=== PATIENT | male | born 1955 | race Caucasian/White ===

== ENCOUNTER 2020-06-16 | Outpatient (REF) | payer BC, SELFPAY | END 2020-06-16 00:01 | disposition home or self-care (01) | LOC: HO.LNP | PROVIDERS: Visit Provider Urology | DX: Z13.89 Encounter for screening for other disorder (principal) ==

== ENCOUNTER → 2020-06-16 09:11 | Outpatient (BNVA) | payer BC, SELFPAY | PROVIDERS: PCP Internal Medicine; Visit Provider Urology | DX: N30.40 Irradiation cystitis without hematuria (principal); C67.9 Malignant neoplasm of bladder, unspecified; C61 Malignant neoplasm of prostate; C79.51 Secondary malignant neoplasm of bone; Z92.3 Personal history of irradiation | CPT/HCPCS: 52000; 81002 ==

== ENCOUNTER 2020-10-12 09:59 | Outpatient (REF) | payer BC, SELFPAY ==
[2020-10-12 13:55] LABS: Urine Cytology See Pathology rpt
== END 2020-10-12 10:00 | disposition home or self-care (01) ==
LOC: HO.LNP 09:59
PROVIDERS: PCP Internal Medicine; Visit Provider Urology
DX: C61 Malignant neoplasm of prostate (principal)
CPT/HCPCS: 81002; 88112

== ENCOUNTER → 2020-11-24 14:41 | Outpatient (BNVA) | payer BC, SELFPAY | PROVIDERS: PCP Internal Medicine; Visit Provider Urology | DX: N30.40 Irradiation cystitis without hematuria (principal); C61 Malignant neoplasm of prostate; C67.9 Malignant neoplasm of bladder, unspecified | CPT/HCPCS: 81002 ==

== ENCOUNTER 2022-07-19 13:59 | Outpatient (REF) | payer BC, SELFPAY ==
[2022-07-19 17:54] LABS: Urine Cytology See Pathology rpt
== END 2022-07-19 14:00 | disposition home or self-care (01) ==
LOC: HO.LAB 13:59
PROVIDERS: Visit Provider Urology
DX: Z13.89 Encounter for screening for other disorder (principal); C67.9 Malignant neoplasm of bladder, unspecified
CPT/HCPCS: 52000; 88112

== ENCOUNTER 2023-01-18 08:55 | Outpatient (REF) | payer BC, SELFPAY ==
[2023-01-18 16:40] LABS: Urine Cytology See Pathology rpt
== END 2023-01-18 08:56 | disposition home or self-care (01) ==
LOC: HO.LAB 08:55
PROVIDERS: PCP Internal Medicine; Visit Provider Urology
DX: C67.9 Malignant neoplasm of bladder, unspecified (principal); C61 Malignant neoplasm of prostate
CPT/HCPCS: 52000; 88112

== ENCOUNTER 2023-07-18 09:00 | Outpatient (AMB) | payer BC, SELFPAY ==
--- NOTE | 2023-07-18 09:13 | A.OFFVIS_ITS ---
Intake Intake Visit Reasons: 6m cysto Intake Note: Patient is Present for Cystoscopy Urology Med: None Antibiotic Allergy: Cipro, Sulfa, Bactrim, Trimethroprim Blood Thinner: None URO- G Disposable Cystoscope lot: [id number] exp:12/18/2024 Allergies ciprofloxacin [From CIPRO] Allergy (Severe, Verified 01/18/23 09:02) RASH sulfamethoxazole [From BACTRIM] Allergy (Severe, Verified 01/18/23 09:02) GI DISTRESS trimethoprim [From BACTRIM] Allergy (Severe, Verified 01/18/23 09:02) GI DISTRESS Sulfa (Sulfonamide Antibiotics) Allergy (Unknown, Verified 01/18/23 09:02) vomiting OYSTERS Allergy (Severe, Uncoded 01/18/23 09:02) SEVERE GI REACTION HPI HPI Comments History of Present Illness Details Milad is a very pleasant male. He is patient of Dr. Moraes. He is seen for the following conditions - prostate cancer recurrent - Dr Hines [facility] - bladder cancer - radiation cystitis Six month follow-up cystoscopy Maintains areas of radiation cystitis - appears to have some resolution Atypical cells on law cytology. FISH today. 05/28 Recent PSMA scan shows continued s mall lesion within prostate bed. PSA now 4.6. Has been assessed at [facility] for directed cryotherapy. 11/25 repeat PMSA with ill-defined lesion in prostate bed. PSA 2.6. Apparent doubling time approximately [address] Hines will be reassessing for repeat cycle of antiandrogen therapy He will let me know if restarting anti-androgen therapy and needs GnRH. Prior issues with hematuria happened after cardiac bypass surgery with Plavix. Needed valve replacement at that time. Prostate cancer: Initial diagnosis 2008 pT3a disease - prostatectomy, salvage radiation, spot radiation, [facility] January 2020 PSA checked every 4 months 06/27 PMSA - reactive pelvic nodes, PSA 1.7 Prostate cancer was diagnosed 2008. PSA at diagnosis 4.5. Diagnosed by Dr Leonard. 05/17 cores all >50% - pT3a Group 2 2008 RRP - salvage radiation 2011 - rising PSA dt 10mth 2017 started GnRH and antiandrogens - 10/21 XRt to solitary sacral met. The [place] grade is 3+4 pT3a at prostatectomy. TNM Classification of Malignant Tumours (TNM) T1c. The D'Marc (NCCN) risk category is Intermediate Risk (PSA 10-20, Gl 7, T2). Initial therapy included Primary treatment, Radical prostatectomy, Additional treatment, Watchful Waiting, , Additional treatment, radiation therapy 2013 Dr. Arteaga [facility] Additional treatment, XRT to pelvic bone lesion DF 11/21, start xitiga Dr Hines DF , Additional treatment GnRH - 04/03/18, 10/03/18, 09/30/19. Recent labs included a PSA (prostate-specific antigen) November 2015 2.0, Mar 2016 2.4, Jul 2016 3.3, November 2016 4.5, January 2017 5.2, Apr 2017 6.4, 09/23 PSA 8.7, T 447, 01/21 PSA 0.09 T 1, 07/23 PSA < 0.2, 02/21 PSA < 0.2, 09/25 <0.2. Recent imaging included a DEXA scan 01/19 osteopenia 02/19 , a bone scan, with no evidence of metastasis - sacroiliac question 04/22 , an MRI (magnetic resonance imaging) - right sacroiliac 1.5 cm lesion suspicious for metastatic disease 08/[address] [facility] confirm metastatic disease 05/23 MRI - response to radiation 09/24 DEXA osteropenia 05/[address]/MRI at [facility] - NAD. Associated conditions erectile dysfunction Yes hematuria Yes hot flashes No incontinence No osteopenia No pathologic fracture No radiation cystitis Yes rectal urgency Yes Therapeutic plan: OR for laser of vessels. Current symptoms include None . Bladder Cancer: Recurrent superficial low-grade Cysto - bladder radiation changes - question velvet change on left sidewall. Fish performed Bladder cancer was initially diagnosed during evaluation for microscopic hematuria 2008. 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 Recurrence Risk per EORTC Low Risk. Bladder cancer risk factors Organic Solvent exposure No pelvic radiation Yes Prior Cystoscopy November 2015 , Negative Mar 2016 - BBx anterior wall October 2016 - nonhealing area anterior wall February 2017 - healed. Small red area posterior 05/22 , Negative 09/23 - minor red areas consistent with radiation cystitis 01/21 minor red areas 05/23 - looking stable, at anastamosis on right side some minor pouching 09/24 - Red splotches - healed on anterior wall 09/25 NAD, 02/22 Radiation changes, 06/25 left velvet patch - FISH planned Prior Cytology 2013 FISH, Abnormal - not positive 03/2016 Cytology - Atypia suspicious for malignancy 08/22 , Negative for malignancy 11/20 , Negative for malignancy 02/19, Negative for malignancy - well healed 06/23 FISH - negative 09/24 Cytology - , Negative for malignancy, 01/[address] Imaging CT scan with contrast 2011 - negative MRI with contrast, Negative Mar 2016 - CT scan with contrast, 2mm stone LLP, otherwise NAD. Planned treatment surveillance protocol. [facility] Medical History Elevated blood pressure reading Secondary malignant neoplasm of bone Surgical History History of appendectomy History of prostatectomy History of surgery Review of Systems Const Denies chills and Denies fever(s) Card Reports no additional complaints and Denies syncope Resp Denies cough GI Denies abdominal pain and Denies heartburn Reports as per HPI and Denies change in libido Neuro Denies syncope Psych Denies change in libido Endo Denies change in libido Physical Exam Const General: cooperative, healthy appearing, comfortable and no acute distress Orientation/consciousness: patient oriented x3 HEENT Face and sinus: Yes normal facial exam Mouth: moist mucous membranes Neck Neck: Yes normal visual inspection, Yes full ROM and Yes trachea midline Chest Chest palpation & inspection: normal inspection of the chest Resp Effort & Inspection: normal respiratory effort, able to speak in complete sentences and no respiratory distress GI Inspection: Yes normal to inspection Back/Spine/Pelvis Cervical Spine: normal cervical lordosis Thoracic/Lumbar Spine: thoracic and lumbar spine normal to inspection Skin General skin exam: no rashes or lesions noted Neuro General: patient oriented x3, gait normal, tone normal and moves all extremities Extrem General: Yes normal to inspection and Yes capillary refill normal Office Procedures Cystoscopy Consent Discussed risk and benefit or proposed procedure with the patient. Information consent for procedure given to the patient. Discussed technical aspects, risks, benefits and alternatives in full. Addressed all of the patient's questions and concerns regarding the procedure. The patient demonstrated knowledge and understanding. They wish to proceed with this procedure. Preparation The patient was prepped in the usual manner. A parts coordinator was present and in the room. Genitalia was prepped with betadine solution in a sterile manner. Lidocaine Jelly 2% was placed into the urethra and 16Fr flexible Olympus cystoscope was inserted into the meatus after adequate lubrication. Procedure Meatus circumcised Urethra anterior posterior urethra normal Prostatic Urethra absent Bladder examination with retroflexion of cystoscope Bladder Orifices normal shape and position Bladder Capacity medium Trabeculations grade 1 Cellule Formation - Diverticulum Formation - Mucosal Erythema sporadic mucosal changes consistent with radiation cystitis Bladder Tumor - [id number] DISPOSABLE SCOPE URO-G FLEXIBLE SCOPE Procedure code (CPT) selection complete Office Meds lidocaine HCl 2 % mucosal jelly in applicator Performing Provider: Grover Graves MD Performing Location: [facility] Administered by: Michelle Joshi RN on 07/18/23 09:30 Dose Route Admin Location Dispensed Lot Number Expiration Date ND Con[employer] Maintenance Mechanic 10 mL intra-urethral 10 mL nitrofurantoin monohydrate/macrocrystals 100 mg capsule Performing Provider: Grover Graves MD Performing Location: [facility] Administered by: Michelle Joshi RN on 07/18/23 09:30 Dose Route Admin Location Dispensed Lot Number Expiration Date ND Conveyor Maintenance Mechanic 100 mg PO 1 cap naproxen 500 mg tablet Performing Provider: Grover Graves MD Performing Location: [facility] Administered by: Michelle Joshi RN on 07/18/23 09:30 Dose Route Admin Location Dispensed Lot Number Expiration Date NDC Con[employer]or Maintenance Mechanic 500 mg PO 1 tab Results AMB Urinalysis, Automated UA Leukoctes 0 Mylene/uL Last Edit by BECKY Davies on 07/18/23 09:19 UA Nitrite Negative Last Edit by BECKY Davies on 07/18/23 09:19 UA Urobilinogen 0.2 mg/dL Last Edit by BECKY Davies on 07/18/23 09:1 9 UA Protein 15 mg/dL Last Edit by BECKY aDvies on 07/18/23 09:19 UA pH 6.0 Last Edit by BECKY Davies on 07/18/23 09:19 UA Blood 0 Doyle/uL Last Edit by BECKY Davies on 07/18/23 09:19 UA Specific [place] 1.020 Last Edit by FOX DaviseA on 07/18/23 09: 19 UA Ketone Negative Last Edit by FOX DaviesA on 07/18/23 09:19 UA Bilirubin 0 mg/dL Last Edit by Luna Boyd A on 07/18/23 09:19 UA Glucose 0 mg/dL Last Edit by BECKY Davies on 07/18/23 09:19 Results Reviewed Results Reviewed: Laboratory Last Values Urine pH (Auto) 6.0 07/18/23 09:16 Specific [place] (Auto) 1.020 07/18/23 09:16 Urine Protein (Auto) 15 mg/dL 07/18/23 09:16 Glucose (UA)(Auto) 0 mg/dL 07/18/23 09:16 Urine Ketones (Auto) Negative 07/18/23 09:16 Urine Blood (Auto) 0 Doyle/uL 07/18/23 09:16 Urine Nitrite (Auto) Negative 07/18/23 09:16 Urine Bilirubin (Auto) 0 mg/dL 07/18/23 09:16 Urine Urobilinogen (Auto) 0.2 mg/dL 07/18/23 09:16 Leukocyte Esterase (Auto) 0 Mylene/uL 07/18/23 09:16 Assessment & Plan Assessment & Plan (1) Prostate cancer: Comment: Metastatic. Status post radiation to area. Had 2 years hormones and zytiga - therapy stopped January 2020. Managed at [facility] Code(s): C61 - Malignant neoplasm of prostate (2) Radiation cystitis: Comment: Last bleed 2020- treated with tranexamic acid Code(s): N30.40 - Irradiation cystitis without hematuria (3) Bladder cancer: Comment: Last cysto 10/24 Code(s): C67.9 - Malignant neoplasm of bladder, unspecified Plan Six month follow-up cystoscopy Orders: Orders AMB Cystoscopy Today C67.9 - Malignant neoplasm of bladder, unspecified AMB Urinalysis Automated Today C67.9 - Malignant neoplasm of bladder, unspecified, Z13.9 - Encounter for screening, unspecified FISH Bladder Cancer Today C67.9 - Malignant neoplasm of bladder, unspecified Patient Instructions: Imaging studies, laboratory and physical exam results were discussed and reviewed in detail. No major barriers to patient understanding were identified. An opportunity to ask questions regarding the treatment plan was provided. All questions were answered. The patient expressed understanding and agreement with the above treatment plan. The patient is aware they should contact our office by phone for worsening of their current condition or the appearance of new urologic symptoms. Compliance is encouraged with any medications and followup testing that is ordered. It is a privilege to participate in the urologic care of your patient. If you have any questions or concerns regarding treatment for the above conditions, or other urologic issues, please do not hesitate to contact me. The office telephone contact is [phone]. This note is constructed using voice recognition software. While every effort has been made to ensure accuracy custodial worker errors may have been included. Yours sincerely, Dr Grover Graves MD, [facility] - Urology Providers of Expert, Compassionate Care for the Genitourinary System Coding Level of Care Code Est Pt Level 4 (35961) Diagnoses Prostate cancer C61 Radiation cystitis N30.40 Bladder cancer C67.9 CPT Codes Cystoscopy - CPT: 95721-[id number] ([id number])
== END 2023-07-18 09:54 | disposition home or self-care (01) ==
PROVIDERS: PCP Internal Medicine; Visit Provider Urology
DX: C61 Malignant neoplasm of prostate (principal); C67.9 Malignant neoplasm of bladder, unspecified; N30.40 Irradiation cystitis without hematuria; Z13.9 Encounter for screening, unspecified
CPT/HCPCS: 52000

== ENCOUNTER 2023-07-18 09:00 | Outpatient (REF) | payer BC, SELFPAY | END 2023-07-18 09:01 | disposition home or self-care (01) | LOC: HO.LAB 09:00 | PROVIDERS: PCP Internal Medicine; Visit Provider Urology | DX: C61 Malignant neoplasm of prostate (principal); C67.9 Malignant neoplasm of bladder, unspecified; N30.40 Irradiation cystitis without hematuria | CPT/HCPCS: 52000; 81003; 88121 ==

== ENCOUNTER 2024-01-16 09:01 | Outpatient (AMB) | payer BC, SELFPAY ==
--- NOTE | 2024-01-16 09:02 | A.OFFVIS_ITS ---
Intake Visit Reasons: cysto Intake Note: Patient is Present for Cystoscopy Urology Med: Pentoxifylline Antibiotic Allergy: Sulfa, Trimethoprim, Cipro Blood Thinner: None URO- G Disposable Cystoscope lot:[id number] exp:09/06/2026 Allergies ciprofloxacin [From CIPRO] Allergy (Severe, Verified 01/16/24 09:07) RASH sulfamethoxazole [From BACTRIM] Allergy (Severe, Verified 01/16/24 09:07) GI DISTRESS trimethoprim [From BACTRIM] Allergy (Severe, Verified 01/16/24 09:07) GI DISTRESS Sulfa (Sulfonamide Antibiotics) Allergy (Unknown, Verified 01/16/24 09:07) vomiting OYSTERS Allergy (Severe, Uncoded 01/16/24 09:07) SEVERE GI REACTION HPI Comments Details: Milad is a very pleasant male. He is patient of Dr. Moraes. He is seen for the following conditions - prostate cancer recurrent - Dr Hines [facility] - bladder cancer - radiation cystitis Six month follow-up cystoscopy Maintains areas of radiation cystitis - appears to have some resolution Atypical cells on law cytology. Cytology today 12/27 surveillance cystoscopy - FISH negative [facility] decided not to pursue targeted cryotherapy on prostate bed. For now treated with abiraterone 05/28 Recent PSMA scan shows continued small lesion within prostate bed. PSA now 4.6. Has been assessed at [facility] for directed cryotherapy. 11/25 repeat PMSA with ill-defined lesion in prostate bed. PSA 2.6. Apparent doubling time approximately [address] Hines will be reassessing for repeat cycle of antiandrogen therapy He will let me know if restarting anti-androgen therapy and needs GnRH. Prior issues with hematuria happened after cardiac bypass surgery with Plavix. Needed valve replacement at that time. Prostate cancer: Initial diagnosis 2008 pT3a disease - prostatectomy, salvage radiation, spot radiation, anti androgen therapy Follows a [facility] Currently therapy ceased January 2020 PSA checked every 4 months 06/27 PMSA - reactive pelvic nodes, PSA 1.7 Prostate cancer was diagnosed 2008. PSA at diagnosis 4.5. Diagnosed by Dr Leonard. 05/17 cores all >50% - pT3a Group 2 2008 RRP - salvage radiation 2011 - rising PSA dt 10mth 2017 started GnRH and antiandrogens - 10/21 XRt to solitary sacral met. The [place] grade is 3+4 pT3a at prostatectomy. TNM Classification of Malignant Tumours (TNM) T1c. The D'Marc (NCCN) risk category is Intermediate Risk (PSA 10-20, Gl 7, T2). Initial therapy included Primary treatment, Radical prostatectomy, Additional treatment, Watchful Waiting, , Additional treatment, radiation therapy 2013 Dr. Arteaga [facility] Additional treatment, XRT to pelvic bone lesion DF 11/21, start xitiga Dr Hines DF , Additional treatment GnRH - 04/03/18, 10/03/18, 09/30/19. Recent labs included a PSA (prostate-specific antigen) November 2015 2.0, Mar 2016 2.4, Jul 2016 3.3, November 2016 4.5, January 2017 5.2, Apr 2017 6.4, 09/23 PSA 8.7, T 447, 01/21 PSA 0.09 T 1, 07/23 PSA < 0.2, 02/21 PSA < 0.2, 09/25 <0.2. Recent imaging included a DEXA scan 01/19 osteopenia 02/19 , a bone scan, with no evidence of metastasis - sacroiliac question 04/22 , an MRI (magnetic resonance imaging) - right sacroiliac 1.5 cm lesion suspicious for metastatic disease 08/23 bone biosy at [facility] confirm metastatic disease 05/23 MRI - response to radiation 09/24 DEXA osteropenia 05/[address]/MRI at [facility] - NAD. Associated conditions erectile dysfunction Yes hematuria Yes hot flashes No incontinence No osteopenia No pathologic fracture No radiation cystitis Yes rectal urgency Yes Therapeutic plan: OR for laser of vessels. Current symptoms include None . Bladder Cancer: Recurrent superficial low-grade Cysto - bladder radiation changes - question velvet change on left sidewall. Fish performed Bladder cancer was initially diagnosed during evaluation for microscopic hematuria 2008. Bladder intervention(s) performed TURBT, Ta noninvasive papillary ca rcinoma, Low Grade, BCG - May 2016 fulgeration + [facility]. Recurrence Risk per EORTC Low Risk. Bladder cancer risk factors Organic Solvent exposure No pelvic radiation Yes Prior Cystoscopy November 2015 , Negative Mar 2016 - BBx anterior wall October 2016 - nonhealing area anterior wall February 2017 - healed. Small red area posterior 05/22 , Negative 09/23 - minor red areas consistent with radiation cystitis 01/21 minor red areas 05/23 - looking stable, at anastamosis on right side some minor pouching 09/24 - Red splotches - healed on anterior wall 09/25 NAD, 02/22 Radiation changes, 06/25 left velvet patch - FISH planned Prior Cytology 2013 FISH, Abnormal - not positive 03/2016 Cytology - Atypia suspicious for malignancy 08/22 , Negative for malignancy 11/20 , Negative for malignancy 02/19, Negative for malignancy - well healed 06/23 FISH - negative 09/24 Cytology - , Negative for malignancy, 01/26 Atypical, 06/28 fish negative Prior Imaging CT scan with contrast 2011 - negative MRI with contrast, Negative Mar 2016 - CT scan with contrast, 2mm stone LLP, otherwise NAD. Planned treatment surveillance protocol. [facility] Medical History Secondary malignant neoplasm of bone Elevated blood pressure reading Surgical History History of surgery History of appendectomy History of prostatectomy Review of Systems Const Denies chills and Denies fever(s) Card Reports no additional complaints and Denies syncope Resp Denies cough GI Denies abdominal pain and Denies heartburn Reports as per HPI and Denies change in libido Neuro Denies syncope Psych Denies change in libido Endo Denies change in libido Physical Exam Const General: cooperative, healthy appearing, comfortable and no acute distress Orientation/consciousness: patient oriented x3 HEENT Face and sinus: Yes normal facial exam Mouth: moist mucous membranes Neck Neck: Yes normal visual inspection, Yes full ROM and Yes trachea midline Chest Chest palpation & inspection: normal inspection of the chest Resp Effort & Inspection: normal respiratory effort, able to speak in complete sentences and no respiratory distress GI Inspection: Yes normal to inspection Back/Spine/Pelvis Cervical Spine: normal cervical lordosis Thoracic/Lumbar Spine: thoracic and lumbar spine normal to inspection Skin General skin exam: no rashes or lesions noted Neuro General: patient oriented x3, gait normal, tone normal and moves all extremities Extrem General: Yes normal to inspection and Yes capillary refill normal Office Procedures Cystoscopy Consent Discussed risk and benefit or proposed procedure with the patient. Information consent for procedure given to the patient. Discussed technical aspects, risks, benefits and alternatives in full. Addressed all of the patient's questions and concerns regarding the procedure. The patient demonstrated knowledge and understanding. They wish to proceed with this procedure. Preparation The patient was prepped in the usual manner. A manufacturing maintenance manager was present and in the room. Genitalia was prepped with betadine solution in a sterile manner. Lidocaine Jelly 2% was placed into the urethra and 16Fr flexible Olympus cystoscope was inserted into the meatus after adequate lubrication. Procedure Cystoscopy performed using a disposable Urovue digital 16 Azeri cystoscope. Meatus circumcised Urethra anterior and posterior urethra normal Prostatic Urethra prostate absent Bladder examination with retroflexion of cystoscope Bladder Orifices normal shape and position Bladder Capacity normal Trabeculations grade 1 Cellule Formation - Diverticulum Formation - Mucosal Erythema mucosal erythema with damage 2nd consistent with radiation cystitis Bladder Tumor - [id number] DISPOSABLE SCOPE URO-G FLEXIBLE SCOPE Procedure code (CPT) selection complete Office Meds lidocaine HCl 2 % mucosal jelly in applicator Performing Provider: Grover Graves MD Performing Location[place] [facility] Administered by: Rasheed Watt LPN on 01/16/24 09:27 Dose Route Admin Location Dispensed Lot Number Expiration Date [facility] Fishing Accessories Maker 10 mL intra-urethral 10 mL nitrofurantoin monohydrate/macrocrystals 100 mg capsule Performing Provider: Grover Graves MD Performing Location: [facility] Administered by: Rasheed Watt LPN on 01/16/24 09:27 Dose Route Admin Location Dispensed Lot Number Expiration Date ND Fishing Accessories Maker 100 mg PO 1 cap naproxen 500 mg tablet Performing Provider: Grover Graves MD Performing Location: [facility] Documented (not given) by: Rasheed Watt LPN on 01/16/24 09:27 Reason Not Given: Patient Refused Results AMB Urinalysis, Automated UA Leukoctes 0 Mylene/uL Last Edit by BECKY Davies on 01/16/24 09:18 UA Nitrite Negative Last Edit by BECKY Davies on 01/16/24 09:18 UA Urobilinogen 0.2 mg/dL Last Edit by BECKY Davies on 01/16/24 09:1 8 UA Protein 15 mg/dL Last Edit by BECKY Davies on 01/16/24 09:18 UA pH 5.0 Last Edit by BECKY Davies on 01/16/24 09:18 UA Blood 0 Doyle/uL Last Edit by Luna Boyd RMA on 01/16/24 09:18 UA Specific [place] 1.025 Last Edit by Luna Boyd RMA on 01/16/24 09: 18 UA Ketone Negative Last Edit by Luna Boyd RMA on 01/16/24 09:18 UA Bilirubin 0 mg/dL Last Edit by Luna Boyd RMA on 01/16/24 09:18 UA Glucose 0 mg/dL Last Edit by Luna Boyd A on 01/16/24 09:18 Results Reviewed Results Reviewed: Laboratory Last Values Urine pH (Auto) 5.0 01/16/24 09:03 Specific [place] (Auto) 1.025 01/16/24 09:03 Urine Protein (Auto) 15 mg/dL 01/16/24 09:03 Glucose (UA)(Auto) 0 mg/dL 01/16/24 09:03 Urine Ketones (Auto) Negative 01/16/24 09:03 Urine Blood (Auto) 0 Doyle/uL 01/16/24 09:03 Urine Nitrite (Auto) Negative 01/16/24 09:03 Urine Bilirubin (Auto) 0 mg/dL 01/16/24 09:03 Urine Urobilinogen (Auto) 0.2 mg/dL 01/16/24 09:03 Leukocyte Esterase (Auto) 0 Mylene/uL 01/16/24 09:03 Assessment & Plan Assessment & Plan (1) Prostate cancer: Comment: Metastatic. Status post radiation to area. Had 2 years hormones and zytiga - therapy stopped January 2020. Managed at [facility] Code(s): C61 - Malignant neoplasm of prostate Category: Medical (2) Radiation cystitis: Comment: Last bleed 2020- treated with tranexamic acid Code(s): N30.40 - Irradiation cystitis without hematuria Category: Medical Plan Six-month follow-up cysto Orders: Orders AMB Urinalysis Automated Today Z13.9 - Encounter for screening, unspecified AMB Cystoscopy Today C67.9 - Malignant neoplasm of bladder, unspecified Urine Cytology Today C67.9 - Malignant neoplasm of bladder, unspecified Patient Instructions: Imaging studies, laboratory and physical exam results were discussed and revie wed in detail. No major barriers to patient understanding were identified. An opportunity to ask questions regarding the treatment plan was provided. All questions were answered. The patient expressed understanding and agreement with the above treatment plan. The patient is aware they should contact our office by phone for worsening of their current condition or the appearance of new urologic symptoms. Compliance is encouraged with any medications and followup testing that is ordered. It is a privilege to participate in the urologic care of your patient. If you have any questions or concerns regarding treatment for the above conditions, or other urologic issues, please do not hesitate to contact me. The office telephone contact is [phone]. This note is constructed using voice recognition software. While every effort has been made to ensure accuracy water server errors may have been included. Yours sincerely, Dr Grover Graves MD, [facility] - Urology Providers of Expert, Compassionate Care for the Genitourinary System Coding Level of Care Code Est Pt Level 3 (47916) Diagnoses Prostate cancer C61 Radiation cystitis N30.40 CPT Codes Cystoscopy - CPT: 58918-[id number] ([id number])
== END 2024-01-16 09:56 | disposition home or self-care (01) ==
PROVIDERS: PCP Internal Medicine; Visit Provider Urology
DX: N30.40 Irradiation cystitis without hematuria (principal); C61 Malignant neoplasm of prostate; C67.9 Malignant neoplasm of bladder, unspecified; Z13.9 Encounter for screening, unspecified
CPT/HCPCS: 52000; 99213

== ENCOUNTER 2024-01-16 09:01 | Outpatient (REF) | payer BC, SELFPAY ==
[2024-01-16 16:50] LABS: Urine Cytology See Pathology rpt
== END 2024-01-16 09:02 | disposition home or self-care (01) ==
LOC: HO.LAB 09:01
PROVIDERS: PCP Internal Medicine; Visit Provider Urology
DX: C61 Malignant neoplasm of prostate (principal); C67.9 Malignant neoplasm of bladder, unspecified; N30.40 Irradiation cystitis without hematuria
CPT/HCPCS: 52000; 81003; 88112

== ENCOUNTER 2024-07-17 08:53 | Outpatient (AMB) | payer MEDICARE, SELFPAY ==
--- NOTE | 2024-07-17 08:59 | MHC.OFFVIS ---
Intake Visit Reasons: cysto Intake Note: Patient is present for Cystoscopy Urology Medication:NONE Antibiotic Allergy:CIPROFLOXACIN,SULFAMETHOXAZOLE,SULFA Blood Thinner: Lot:[id number] Exp:06/09/27 Supervisor Lead Burning Required: No Allergies ciprofloxacin [From CIPRO] Allergy (Severe, Verified 07/17/24 09:01) RASH sulfamethoxazole [From BACTRIM] Allergy (Severe, Verified 07/17/24 09:01) GI DISTRESS trimethoprim [From BACTRIM] Allergy (Severe, Verified 07/17/24 09:01) GI DISTRESS Sulfa (Sulfonamide Antibiotics) Allergy (Unknown, Verified 07/17/24 09:01) vomiting OYSTERS Allergy (Severe, Uncoded 07/17/24 09:01) SEVERE GI REACTION HPI Comments Details: Milad is a very pleasant male. He is patient of Dr. Moraes. He is seen for the following conditions - prostate cancer recurrent - Dr Hines [facility] - bladder cancer - radiation cystitis Six month follow-up cystoscopy Did have areas of radiation cystitis anterior Had some bleeding that had been associated with amlodipine Continues with abiraterone and well controlled PSA 12/27 surveillance cystoscopy - FISH negative [facility] decided not to pursue targeted cryotherapy on prostate bed. For now treated with abiraterone 05/28 Recent PSMA scan shows continued small lesion within prostate bed. PSA now 4.6. Has been assessed at [facility] for directed cryotherapy. 11/25 repeat PMSA with ill-defined lesion in prostate bed. PSA 2.6. Apparent doubling time approximately [address] Hines will be reassessing for repeat cycle of antiandrogen therapy He will let me know if restarting anti-androgen therapy and needs GnRH. Prior issues with hematuria happened after cardiac bypass surgery with Plavix. Needed valve replacement at that time. Prostate cancer: Initial diagnosis 2008 pT3a disease - prostatectomy, salvage radiation, spot radiation, anti androgen therapy Follows a [facility] Currently therapy ceased January 2020 PSA checked every 4 months 06/27 PMSA - reactive pelvic nodes, PSA 1.7 Prostate cancer was diagnosed 2008. PSA at diagnosis 4.5. Diagnosed by Dr Leonard. 05/17 cores all >50% - pT3a Group 2 2008 RRP - salvage radiation 2011 - rising PSA dt 10mth 2017 started GnRH and antiandrogens - 10/21 XRt to solitary sacral met. The [place] grade is 3+4 pT3a at prostatectomy. TNM Classification of Malignant Tumours (TNM) T1c. The D'Marc (NCCN) risk category is Intermediate Risk (PSA 10-20, Gl 7, T2). Initial therapy included Primary treatment, Radical prostatectomy, Additional treatment, Watchful Waiting, , Additional treatment, radiation therapy 2013 Dr. Arteaga [facility] Additional treatment, XRT to pelvic bone lesion DF 11/21, start xitiga Dr Hines DF , Additional treatment GnRH - 04/03/18, 10/03/18, 09/30/19. Recent labs included a PSA (prostate-specific antigen) November 2015 2.0, Mar 2016 2.4, Jul 2016 3.3, November 2016 4.5, January 2017 5.2, Apr 2017 6.4, 09/23 PSA 8.7, T 447, 01/21 PSA 0.09 T 1, 07/23 PSA < 0.2, 02/21 PSA < 0.2, 09/25 <0.2. Recent imaging included a DEXA scan 01/19 osteopenia 02/19 , a bone scan, with no evidence of metastasis - sacroiliac question 04/22 , an MRI (magnetic resonance imaging) - right sacroiliac 1.5 cm lesion suspicious for metastatic disease 08/23 bone biosy at [facility] confirm metastatic disease 05/23 MRI - response to radiation 09/24 DEXA osteropenia 05/[address]/MRI at [facility] - NAD. Associated conditions erectile dysfunction Yes hematuria Yes hot flashes No incontinence No osteopenia No pathologic fracture No radiation cystitis Yes rectal urgency Yes Therapeutic plan: OR for laser of vessels. Current symptoms include None . Bladder Cancer: Recurrent superficial low-grade Cysto - bladder radiation changes - question velvet change on left sidewall. Fish performed Bladder cancer was initially diagnosed during evaluation for microscopic hematuria 2008. 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 Recurrence Risk per EORTC Low Risk. Bladder cancer risk factors Organic Solvent exposure No pelvic radiation Yes Prior Cystoscopy November 2015 , Negative Mar 2016 - BBx anterior wall October 2016 - nonhealing area anterior wall February 2017 - healed. Small red area posterior 05/22 , Negative 09/23 - minor red areas consistent with radiation cystitis 01/21 minor red areas 05/23 - looking stable, at anastamosis on right side some minor pouching 09/24 - Red splotches - healed on anterior wall 09/25 NAD, 02/22 Radiation changes, 06/25 left velvet patch - FISH planned Prior Cytology 2013 FISH, Abnormal - not positive 03/2016 Cytology - Atypia suspicious for malignancy 08/22 , Negative for malignancy 11/20 , Negative for malignancy 02/19, Negative for malignancy - well healed 06/23 FISH - negative 09/24 Cytology - , Negative for malignancy, 01/26 Atypical, 06/28 fish negative Prior Imaging CT scan with contrast 2011 - negative MRI with contrast, Negative Mar 2016 - CT scan with contrast, 2mm stone LLP, otherwise NAD. Planned treatment surveillance protocol. [facility] Medical History Secondary malignant neoplasm of bone Elevated blood pressure reading Surgical History History of surgery History of appendectomy History of prostatectomy Review of Systems Const Denies chills and Denies fever(s) Card Reports no additional complaints and Denies syncope Resp Denies cough GI Denies abdominal pain and Denies heartburn Reports as per HPI and Denies change in libido Neuro Denies syncope Psych Denies change in libido Endo Denies change in libido Physical Exam Const General: cooperative, healthy appearing, comfortable and no acute distress Orientation/consciousness: patient oriented x3 HEENT Face and sinus: Yes normal facial exam Mouth: moist mucous membranes Neck Neck: Yes normal visual inspection, Yes full ROM and Yes trachea midline Chest Chest palpation & inspection: normal inspection of the chest Resp Effort & Inspection: normal respiratory effort, able to speak in complete sentences and no respiratory distress GI Inspection: Yes normal to inspection Back/Spine/Pelvis Cervical Spine: normal cervical lordosis Thoracic/Lumbar Spine: thoracic and lumbar spine normal to inspection Skin General skin exam: no rashes or lesions noted Neuro General: patient oriented x3, gait normal, tone normal and moves all extremities Extrem General: Yes normal to inspection and Yes capillary refill normal Office Procedures Cystoscopy Consent Discussed risk and benefit or proposed procedure with the patient. Information consent for procedure given to the patient. Discussed technical aspects, risks, benefits and alternatives in full. Addressed all of the patient's questions and concerns regarding the procedure. The patient demonstrated knowledge and understanding. They wish to proceed with this procedure. Preparation The patient was prepped in the usual manner. A steep tender was present and in the room. Genitalia was prepped with betadine solution in a sterile manner. Lidocaine Jelly 2% was placed into the urethra and 16Fr flexible Olympus cystoscope was inserted into the meatus after adequate lubrication. Procedure Cystoscopy performed using a disposable Urovue digital 16 Syri[place] cystoscope. Meatus circumcised Urethra anterior and posterior urethra normal Prostatic Urethra prostate absent Bladder examination with retroflexion of cystoscope Bladder Orifices normal shape and position Bladder Capacity median Trabeculations grade 1 Cellule Formation - Diverticulum Formation - Mucosal Erythema radiation cystitis particularly lower 3rd of bladder Bladder Tumor - [id number] DISPOSABLE SCOPE URO-G FLEXIBLE SCOPE Procedure code (CPT) selection complete Office Meds lidocaine HCl 2 % mucosal jelly in applicator Performing Provider: Grover Graves MD Performing Location[facility] Administered by: Grover Graves MD on 07/17/24 13:38 Dose Route Admin Location Dispensed Lot Number Expiration Date [facility] Security Installation Sales Technician 10 mL intra-urethral 10 mL Results AMB Urinalysis, Automated UA Leukoctes 0 Mylene/uL Last Edit by CINTHIA Spear on 07/17/24 09:10 UA Nitrite Negative Last Edit by CINTHIA Spear on 07/17/24 09:10 UA Urobilinogen 0.2 mg/dL Last Edit by CINTHIA Spear on 07/17/24 09:10 UA Protein 15 mg/dL Last Edit by CINTHIA Spear on 07/17/24 09:10 UA pH 5.5 Last Edit by CINTHIA Spear on 07/17/24 09:10 UA Blood 0 Doyle/uL Last Edit by CINTHIA Spear on 07/17/24 09:10 UA Specific [place] 1.030 Last Edit by CINTHIA Spear on 07/17/24 09:10 UA Ketone Negative Last Edit by CINTHIA Spear on 07/17/24 09:10 UA Bilirubin 0 mg/dL Last Edit by CINTHIA Spear on 07/17/24 09:10 UA Glucose 0 mg/dL Last Edit by CINTHIA Spear on 07/17/24 09:10 Results Reviewed Results Reviewed: Laboratory Last Values Urine pH (Auto) 5.5 07/17/24 09:10 Specific [place] (Auto) 1.030 07/17/24 09:10 Urine Protein (Auto) 15 mg/dL 07/17/24 09:10 Glucose (UA)(Auto) 0 mg/dL 07/17/24 09:10 Urine Ketones (Auto) Negative 07/17/24 09:10 Urine Blood (Auto) 0 Doyle/uL 07/17/24 09:10 Urine Nitrite (Auto) Negative 07/17/24 09:10 Urine Bilirubin (Auto) 0 mg/dL 07/17/24 09:10 Urine Urobilinogen (Auto) 0.2 mg/dL 07/17/24 09:10 Leukocyte Esterase (Auto) 0 Mylene/uL 07/17/24 09:10 Assessment & Plan Assessment & Plan (1) Bladder cancer: Comment: Last cysto 10/24 Code(s): C67.9 - Malignant neoplasm of bladder, unspecified Category: Medical (2) Prostate cancer: Comment: Metastatic. Status post radiation to area. Had 2 years hormones and zytiga - therapy stopped January 2020. Managed at [facility] Code(s): C61 - Malignant neoplasm of prostate Category: Medical (3) Radiation cystitis: Comment: Last bleed 2020- treated with tranexamic acid Code(s): N30.40 - Irradiation cystitis without hematuria Category: Medical Plan Discussed use of tranexamic acid Six-month follow-up check cysto Orders: Orders AMB Urinalysis Automated Today Z13.9 - Encounter for screening, unspecified AMB Cystoscopy Today N30.40 - Irradiation cystitis without hematuria Medications: New lidocaine HCl 2% 10 mL intra-urethral ONCE 10 mL 0RF N30.40 - Irradiation cystitis without hematuria Patient Instructions: Imaging studies, laboratory and physical exam results were discussed and reviewed in detail. No major barriers to patient understanding were identified. An opportunity to ask questions regarding the treatment plan was provided. All questions were answered. The patient expressed understanding and agreement with the above treatment plan. The patient is aware they should contact our office by phone for worsening of their current condition or the appearance of new urologic symptoms. Compliance is encouraged with any medications and followup testing that is ordered. It is a privilege to participate in the urologic care of your patient. If you have any questions or concerns regarding treatment for the above conditions, or other urologic issues, please do not hesitate to contact me. The office telephone contact is [phone]. This note is constructed using voice recognition software. While every effort has been made to ensure accuracy pie bottomer errors may have been included. Yours sincerely, Dr Grover Graves MD, [facility] - Urology Providers of Expert, Compassionate Care for the Genitourinary System Coding Level of Care Code Est Pt Level 3 (40811) Diagnoses Bladder cancer C67.9 Prostate cancer C61 Radiation cystitis N30.40 CPT Codes Cystoscopy - CPT: 94936-[id number] ([id number])
== END 2024-07-17 09:58 | disposition home or self-care (01) ==
PROVIDERS: PCP Internal Medicine; Visit Provider Urology
DX: C67.9 Malignant neoplasm of bladder, unspecified (principal); C61 Malignant neoplasm of prostate; N30.40 Irradiation cystitis without hematuria; Z13.9 Encounter for screening, unspecified
CPT/HCPCS: 52000; 99213

== ENCOUNTER → 2024-07-17 08:53 | Outpatient (BNVA) | payer BC, SELFPAY | PROVIDERS: PCP Internal Medicine; Visit Provider Urology | DX: C61 Malignant neoplasm of prostate (principal); C67.9 Malignant neoplasm of bladder, unspecified; N30.40 Irradiation cystitis without hematuria | CPT/HCPCS: 52000; 81003; 99212 ==

== ENCOUNTER 2025-01-20 08:55 | Outpatient (AMB) | payer MEDICARE, SELFPAY ==
--- NOTE | 2025-01-20 09:07 | A.OFFVIS_ITS ---
Intake Visit Reasons: 6m cysto Intake Note: Patient is present for 6M/CYSTO Urology Medication:NONE Antibiotic Allergy:CIPROFLOXACIN,SULFA,BACTRIM Blood Thinner:NONE Associate Brand Manager Required: No Allergies ciprofloxacin [From CIPRO] Allergy (Severe, Verified 01/20/25 09:09) RASH sulfamethoxazole [From BACTRIM] Allergy (Severe, Verified 01/20/25 09:09) GI DISTRESS trimethoprim [From BACTRIM] Allergy (Severe, Verified 01/20/25 09:09) GI DISTRESS Sulfa (Sulfonamide Antibiotics) Allergy (Unknown, Verified 01/20/25 09:09) vomiting OYSTERS Allergy (Severe, Uncoded 01/20/25 09:09) SEVERE GI REACTION HPI Comments Details: Milad is a very pleasant male. He is patient of Dr. Moraes. He is seen for the following conditions - prostate cancer recurrent - Dr Hines [facility] - bladder cancer - radiation cystitis Six month follow-up cystoscopy Had some bleeding that had been associated with amlodipine Continues with abiraterone and well controlled PSA 01/28 Check cysto - stable Recent PSMA PET scan at [facility] showed decreased avidity of prostate bed. Has been taken off abiraterone. Did have single dose GnRH whilst on antiandrogen. 12/27 surveillance cystoscopy - FISH negative [facility] decided not to pursue targeted cryotherapy on prostate bed. For now treated with abiraterone 05/28 Recent PSMA scan shows continued small lesion within prostate bed. PSA now 4.6. Has been assessed at [facility] for directed cryotherapy. 11/25 repeat PMSA with ill-defined lesion in prostate bed. PSA 2.6. Apparent doubling time approximately [address] Hines will be reassessing for repeat cycle of antiandrogen therapy He will let me know if restarting anti-androgen therapy and needs GnRH. Prior issues with hematuria happened after cardiac bypass surgery with Plavix. Needed valve replacement at that time. Prostate cancer: Initial diagnosis 2008 pT3a disease - prostatectomy, salvage radiation, spot radiation, anti androgen therapy Follows a [facility] Currently therapy ceased January 2020 PSA checked every 4 months 06/27 PMSA - reactive pelvic nodes, PSA 1.7 Prostate cancer was diagnosed 2008. PSA at diagnosis 4.5. Diagnosed by Dr Leonard. 05/17 cores all >50% - pT3a Group 2 2009 RRP - salvage radiation 2011 - rising PSA dt 10mth 2017 started GnRH and antiandrogens - 10/21 XRt to solitary sacral met. The [place] grade is 3+4 pT3a at prostatectomy. TNM Classification of Malignant Tumours (TNM) T1c. The D'Marc (NCCN) risk category is Intermediate Risk (PSA 10-20, Gl 7, T2). Initial therapy included Primary treatment, Radical prostatectomy, Additional treatment, Watchful Waiting, , Additional treatment, radiation therapy [address] [facility] Additional treatment, XRT to pelvic bone lesion DF 11/21, start xitiga Dr Hines DF , Additional treatment GnRH - 04/03/18, 10/03/18, 09/30/19. Recent labs included a PSA (prostate-specific antigen) November 2015 2.0, Mar 2016 2.4, Jul 2016 3.3, November 2016 4.5, January 2017 5.2, Apr 2017 6.4, 09/23 PSA 8.7, T 447, 01/21 PSA 0.09 T 1, 07/23 PSA < 0.2, 02/21 PSA < 0.2, 09/25 <0.2. Recent imaging included a DEXA scan 01/19 osteopenia 02/19 , a bone scan, with no evidence of metastasis - sacroiliac question 04/22 , an MRI (magnetic resonance imaging) - right sacroiliac 1.5 cm lesion suspicious for metastatic disease 08/[address] [facility] confirm metastatic disease 05/23 MRI - response to radiation 09/24 DEXA osteropenia 05/[address]/MRI at [facility] - NAD. Associated conditions erectile dysfunction Yes hematuria Yes hot flashes No incontinence No osteopenia No pathologic fracture No radiation cystitis Yes rectal urgency Yes Therapeutic plan: OR for laser of vessels. Current symptoms include None . Bladder Cancer: Recurrent superficial low-grade Cysto - bladder radiation changes - question velvet change on left sidewall. Fish performed Bladder cancer was initially diagnosed during evaluation for microscopic hematuria 2008. 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 Recurrence Risk per EORTC Low Risk. Bladder cancer risk factors Organic Solvent exposure No pelvic radiation Yes Prior Cystoscopy November 2015 , Negative Mar 2016 - BBx anterior wall October 2016 - nonhealing area anterior wall February 2017 - healed. Small red area posterior 05/22 , Negative 09/23 - minor red areas consistent with radiation cystitis 01/21 minor red areas 05/23 - looking stable, at anastamosis on right side some minor pouching 09/24 - Red splotches - healed on anterior wall 09/25 NAD, 02/22 Radiation changes, 06/25 left velvet patch - FISH planned Prior Cytology 2013 FISH, Abnormal - not positive 03/2016 Cytology - Atypia suspicious for malignancy 08/22 , Negative for malignancy 11/20 , Negative for malignancy 02/19, Negative for malignancy - well healed 06/23 FISH - negative 09/24 Cytology - , Negative for malignancy, 01/26 Atypical, 06/28 fish negative Prior Imaging CT scan with contrast 2011 - negative MRI with contrast, Negative Mar 2016 - CT scan with contrast, 2mm stone LLP, otherwise NAD. Planned treatment surveillance protocol. [facility] Medical History Secondary malignant neoplasm of bone Elevated blood pressure reading Surgical History History of surgery History of appendectomy History of prostatectomy Review of Systems Const Denies chills and Denies fever(s) Card Reports no additional complaints and Denies syncope Resp Denies cough GI Denies abdominal pain and Denies heartburn Reports as per HPI and Denies change in libido Neuro Denies syncope Psych Denies change in libido Endo Denies change in libido Physical Exam Const General: cooperative, healthy appearing, comfortable and no acute distress Orientation/consciousness: patient oriented x3 HEENT Face and sinus: Yes normal facial exam Mouth: moist mucous membranes Neck Neck: Yes normal visual inspection, Yes full ROM and Yes trachea midline Chest Chest palpation & inspection: normal inspection of the chest Resp Effort & Inspection: normal respiratory effort, able to speak in complete sentences and no respiratory distress GI Inspection: Yes normal to inspection Back/Spine/Pelvis Cervical Spine: normal cervical lordosis Thoracic/Lumbar Spine: thoracic and lumbar spine normal to inspection Skin General skin exam: no rashes or lesions noted Neuro General: patient oriented x3, gait normal, tone normal and moves all extremities Extrem General: Yes normal to inspection and Yes capillary refill normal Office Procedures Cystoscopy Consent Discussed risk and benefit or proposed procedure with the patient. Information consent for procedure given to the patient. Discussed technical aspects, risks, benefits and alternatives in full. Addressed all of the patient's questions and concerns regarding the procedure. The patient demonstrated knowledge and understanding. They wish to proceed with this procedure. Preparation The patient was prepped in the usual manner. A licensed physical therapist was present and in the room. Genitalia was prepped with betadine solution in a sterile manner. Lidocaine Jelly 2% was placed into the urethra and 16Fr flexible Olympus cystoscope was inserted into the meatus after adequate lubrication. Procedure Cystoscopy performed using a disposable Urovue digital 16 [place] cystoscope. Meatus circumcised Urethra anterior and posterior urethra normal Prostatic Urethra absent Bladder examination with retroflexion of cystoscope Bladder Orifices normal shape and position Bladder Capacity Normal Trabeculations grade 1 Cellule Formation None Diverticulum Formation None Mucosal Erythema radiation damage around lower 3rd Bladder Tumor None [id number] DISPOSABLE SCOPE URO-G FLEXIBLE SCOPE Procedure code (CPT) selection complete Office Meds lidocaine HCl 2 % mucosal jelly in applicator Performing Provider: Grover Graves MD Performing Location: [facility] Administered by: Rasheed Watt LPN on 01/20/25 09:24 Dose Route Admin Location Dispensed Lot Number Expiration Date ND Freezing Machine Operator 10 mL intra-urethral 10 mL nitrofurantoin monohydrate/macrocrystals 100 mg capsule Performing Provider: Grover Graves MD Performing Location: [facility] Administered by: Rasheed Watt LPN on 01/20/25 09:24 Dose Route Admin Location Dispensed Lot Number Expiration Date ND Freezing Machine Operator 100 mg PO 1 cap Results AMB Urinalysis, Automated UA Leukoctes 0 Mylene/uL Last Edit by CINTHIA Spear on 01/20/25 09:22 UA Nitrite Negative Last Edit by CINTHIA Spear on 01/20/25 09:22 UA Urobilinogen 0.2 mg/dL Last Edit by CINTHIA Spear on 01/20/25 09:2 2 UA Protein 15 mg/dL Last Edit by CINTHIA Spear on 01/20/25 09:22 UA pH 6.0 Last Edit by CINTHIA Spear on 01/20/25 09:22 UA Blood 0 Doyle/uL Last Edit by CINTHIA Spear on 01/20/25 09:22 UA Specific [place] 1.020 Last Edit by CINTHIA Spear on 01/20/25 09: 22 UA Ketone Negative Last Edit by CINTHIA Spear on 01/20/25 09:22 UA Bilirubin 0 mg/dL Last Edit by CINTHIA Spear on 01/20/25 09:22 UA Glucose 0 mg/dL Last Edit by CINTHIA Spear on 01/20/25 09:22 Results Reviewed Results Reviewed: Laboratory Last Values Urine pH (Auto) 6.0 01/20/25 09:21 Specific [place] (Auto) 1.020 01/20/25 09:21 Urine Protein (Auto) 15 mg/dL 01/20/25 09:21 Glucose (UA)(Auto) 0 mg/dL 01/20/25 09:21 Urine Ketones (Auto) Negative 01/20/25 09:21 Urine Blood (Auto) 0 Doyle/uL 01/20/25 09:21 Urine Nitrite (Auto) Negative 01/20/25 09:21 Urine Bilirubin (Auto) 0 mg/dL 01/20/25 09:21 Urine Urobilinogen (Auto) 0.2 mg/dL 01/20/25 09:21 Leukocyte Esterase (Auto) 0 Mylene/uL 01/20/25 09:21 Assessment & Plan Assessment & Plan (1) Bladder cancer: Comment: Last cysto 10/24 Code(s): C67.9 - Malignant neoplasm of bladder, unspecified Category: Medical (2) Prostate cancer: Comment: Metastatic. Status post radiation to area. Had 2 years hormones and zytiga - therapy stopped January 2020. Managed at [facility] Code(s): C61 - Malignant neoplasm of prostate Category: Medical (3) Radiation cystitis: Comment: Last bleed 2020- treated with tranexamic acid Code(s): N30.40 - Irradiation cystitis without hematuria Category: Medical Plan Six-month follow-up check cysto office Orders: Orders AMB Urinalysis Automated Today Z13.9 - Encounter for screening, unspecified Urine Cytology Today C67.9 - Malignant neoplasm of bladder, unspecified AMB Cystoscopy Today C67.9 - Malignant neoplasm of bladder, unspecified, N30.40 - Irradiation cystitis without hematuria Patient Instructions: This note is constructed using voice recognition software. While every effort has been made to ensure accuracy laundry washer errors may have been included. Imaging studies, laboratory and physical exam results were discussed and reviewed in detail. No major barriers to patient understanding were identified. An opportunity to ask questions regarding the treatment plan was provided. All questions were answered. The patient expressed understanding and agreement with the above treatment plan. The patient is aware they should contact our office by phone for worsening of their current condition or the appearance of new urologic symptoms. Compliance is encouraged with any medications and followup testing that is ordered. It is a privilege to participate in the urologic care of your patient. If you have any questions or concerns regarding treatment for the above conditions, or other urologic issues, please do not hesitate to contact me. The office telephone contact is [phone]. Sincerely, Dr Grover Graves MD, [facility] - Urology Compassionate Specialist Care for the Genitourinary System Coding Level of Care Code Est Pt Level 3 (55208) Complex EM visit Add On G2211 Diagnoses Bladder cancer C67.9 Prostate cancer C61 Radiation cystitis N30.40 CPT Codes Cystoscopy - CPT: 55029-[id number] ([id number])
--- OUTSIDE RECORDS SUMMARY | 2025-01-20 09:30 | XMS_ITS | Clinical Summary ---
Author Organization [facility] [employer] Address [address] [place] [address] Phone Care Team Providers Care Sap Plant Maintenance Consultant Name Role Phone Albert Moraes MD Primary Care Provider [phone] Allergies Active Allergy Reactions Criticality Noted Date Comments Ciprofloxacin Rash 06/09/2021 Sulfamethoxazole-Trimethoprim 2020 Medications atorvastatin (LIPITOR) 20 mg tablet Take 1 tablet (20 mg total) by mouth 1 (one) time each day. Active amLODIPine (NORVASC) 10 mg tablet Take 1 tablet (10 mg total) by mouth 1 (one) time each day. 04/02/2024 Active aspirin 81 mg EC tablet Take 81 mg by mouth daily. Active cyclobenzaprine (FLEXERIL) 10 mg tablet Take 10 mg by mouth at bedtime as needed. Active omeprazole (PRILOSEC) 20 mg tablet,delayed release (DR/EC) Take 1 tablet (20 mg total) by mouth 1 (one) time each day. Active traMADoL (ULTRAM) 50 mg tablet Take 50 mg by mouth daily as needed. Active acetaminophen (TYLENOL ARTHRITIS PAIN ORAL) Take 1 tablet by mouth every 4 hours as needed. Active metoprolol succinate (TOPROL-XL) 50 mg 24 hr tabletIndicatio ns:Atherosclero tic heart disease of lime coronary artery without angina pectoris TAKE 1 TABLET BY MOUTH EVERY DAY 90 tablet 1 11/25/2024 Active Active Problems Problem Noted Date Diagnosed Date CAD (coronary artery disease) 11/18/2021 Abnormal stress test 06/10/2021 Overview (10/10/2024): Last Assessment & Plan: The stress test abnormalities may be related to prior myocardial infarction although may also be related to aortic stenosis which can mimic these findings. On this basis I did recommend he continue with low-dose aspirin and statin therapy. If we discover evidence of coronary disease on his angiogram then I would change his statin to atorvastatin 40 mg a day. Hypercholesterolemia 06/09/2021 Hypertension 06/09/2021 Surgical History Surgery Date Site/Laterality Comments COLONOSCOPY 11/09/2020 PROCEDURE: HISTORICAL COLONOSCOPY COLONOSCOPY 08/02/2009 PROCEDURE: HISTORICAL COLONOSCOPY APPENDECTOMY PROCEDURE: HISTORICAL APPENDECTOMY Medical History Medical History Date Comments Ankle fracture, left DX:Ankle fr acture, left History of appendectomy DX:Histo ry of appendectomy Bladder cancer (CMS/HCC V24, CMS/HCC V28) DX:Bladder cancer (HCC) Cancer of prostate (CMS/HCC V24, CMS/HCC V28) DX:Cancer of prostate (HCC) Closed fracture of left wrist DX :Closed fracture of left wrist Erectile dysfunction DX:Erectile dysfunction Gastroesophageal reflux DX:Gastr oesophageal reflux Herniation of cervical inter vertebral disc DX:Herniation of cervical intervertebral disc Hyperglycemia DX:Hyperglycemia Hyperplastic colon polyp DX:Hype rplastic colon polyp Nephrolithiasis DX:Nephrolithias is Tobacco dependence DX:Tobacco de pendence Family History Medical History Relation Name Comments Hyperlipidemia Father Osteoporosis Father Hyperlipidemia Mother Hypertension Other Relation Name Status Comments Father Mother Other Social History Tobacco Use Types Packs/Day Years Used Date Smoking Tobacco: Former Smokeless Tobacco: Never Alcohol Use Standard Drinks/Week Comments Yes 0 (1 standard drink = 0.6 oz pur e alcohol) Sex and Gender Information Value Date Recorded Sex Assigned at Male 11/25/2024 7:44 PM EDT Legal Sex Male 3:15 PM EST Gender Identity Male 11/25/2024 7:44 PM EDT Sexual Orientation Straight 11/25/2024 7: 44 PM EDT Obstetrics History Last Filed Vital Signs Vital Sign Reading Time Taken Comments Blood Pressure 142/98 04/25/2024 8:57 AM EDT Sit ting L Arm Pulse 64 04/25/2024 8:57 AM EDT Temperature - - Respiratory Rate - - Oxygen Saturation - - Inhaled Oxygen Concentration - - Weight 88 kg (194 lb) 04/25/2024 8:57 AM EDT Height 185.4 cm (6' 1 ) 04/25/2024 8:57 AM EDT Body Mass Index 25.6 04/25/2024 8:57 AM EDT Plan of Treatment Upcoming Encounters Date Type Department Care Team (Late st Contact Info) Description 04/07/2025 9:00 AM EDT Ancillary Procedure [facility] Cardiology [facility] [address] [place] [address] 06/16/2025 10:40 AM EST Office Visit [facility] Medical [place] [address] [place] [address] CycRahul mart NP [address] [place] [address] [address] [place] [address] Health Maintenance Due Date Last Done Comments COVID-19 Vaccine (#1) 1962 DTaP,Tdap,and Td Vaccines (1 - Tdap) 1976 Zoster Vaccines (1 of 2) 1976 Pneumococcal Vaccine: 50+ Ye ars (1 of 1 - PCV) 2007 Abdominal Aortic Aneurysm (A AA) Screen 07/16/2022 Cholesterol Screening (Lipid Panel) 07/16/2022 Colorectal Cancer Screening: Colonoscopy 07/16/2022 Depression Screening 07/16/2022 Hepatitis C Screening 07/16/2022 Hypertension/CHF/CAD Annual BMP Blood Test 07/16/2022 Social Influencers of Health Screening 07/16/2022 Falls Risk Assessment 2022 Influenza Vaccine (Season Ended) 2025 RSV Immunization Adult Patie nts (1 - 1-dose 75+ series) 2032 HIB Vaccines Aged Out No longer eligi ble based on patient's age to complete this topic HPV Vaccines Aged Out No longer eligi ble based on patient's age to complete this topic Hepatitis A Vaccines Aged Out No long er eligible based on patient's age to complete this topic Hepatitis B Vaccines Aged Out No long er eligible based on patient's age to complete this topic IPV Vaccines Aged Out No longer eligi ble based on patient's age to complete this topic MMR Vaccines Aged Out No longer eligi ble based on patient's age to complete this topic Meningococcal ACWY Vaccine Aged Out N o longer eligible based on patient's age to complete this topic Meningococcal B Vaccine Aged Out No l onger eligible based on patient's age to complete this topic RSV Immunization Patients Un amna 20 months Aged Out No longer eligible b ased on patient's age to complete this topic Varicella Vaccines Aged Out No longer eligible based on patient's age to complete this topic Insurance [facility] Care Teams Sap Plant Maintenance Consultant Relationship Specialty Start Date End Date Albert Moraes MD [address] [place] [address] PCP - General 01/15/09
== END 2025-01-20 09:45 | disposition home or self-care (01) ==
LOC: HO.HUSH 08:56
PROVIDERS: PCP Internal Medicine; Visit Provider Urology
DX: C67.9 Malignant neoplasm of bladder, unspecified (principal); C61 Malignant neoplasm of prostate; N30.40 Irradiation cystitis without hematuria; Z13.9 Encounter for screening, unspecified
CPT/HCPCS: 52000; 99213

== ENCOUNTER 2025-01-20 08:55 | Outpatient (REF) | payer MEDICARE, SELFPAY ==
[2025-01-20 16:41] LABS: Urine Cytology See Pathology rpt
== END 2025-01-20 08:56 | disposition home or self-care (01) ==
LOC: HO.LAB 08:55
PROVIDERS: PCP Internal Medicine; Visit Provider Urology
DX: C67.9 Malignant neoplasm of bladder, unspecified (principal); C61 Malignant neoplasm of prostate; N30.40 Irradiation cystitis without hematuria
CPT/HCPCS: 52000; 81003; 88112; 99212

== ENCOUNTER 2025-07-23 08:56 | Outpatient (REF) | payer MEDICARE, SELFPAY ==
--- OUTSIDE RECORDS SUMMARY | 2025-07-23 19:49 | XMS_ITS ---
Author Organization [facility] Address [address] [place] [address] Phone Care Team Providers Care Folder Stitcher Operator Name Role Phone Albert Moraes MD Primary Care Provider [phone] Felix Hines MD Unavailable [phone] Grover Graves MD Unavailable Genoveva Goldman NP Unavailable Amina Moran RN Unavailable Amina [email or web address] Active Problems Problem Noted Date Diagnosed [...]
--- OUTSIDE RECORDS SUMMARY | 2025-07-23 19:49 | XMS_ITS | Encounter Summary ---
Author Organization [facility] Address [address] [place] [address] [place] [address] Phone Care Team Providers Care Pocket And Pulley Machine Operator Name Role Phone Albert Moraes MD Primary Care Provider [phone] Jamie Gallegos MD Unavailable Letty galaviz Self-Referred, Patient Unavailable Unavailab Felix Castillo MD Unavailable Grover Graves MD Unavailable [phone] Jessica Suarez NP, RN Unavailable Genoveva Goldman NP Unavailable Amina Moran RN Unavailable Amina [email or web address] Encounter Details Date Type Department Care Team (Late st Contact Info) Description 05/31/2017 Procedure Pass [facility], [facility] [place] [address] [facility], Floor [address] [place] [address] Social History Tobacco Use Types [...] AM EST Blood Draw Laboratory Services, [address], 2nd Floor [place], [place] Felix Hines MD [address] [place] [address] 1230 DA [address]30 [place] [address] [email or web address] 08/11/2025 12:00 PM EST Office [facility], [facility] [address] [facility], 11th Floor [place], [place] [phone] Felix Hines MD [address] [place] [address] 1230 DA [facility] [place] [address] [email or web address] documented as of this encounter Visit Diagnoses Not on filedocumented in this encounter Care Teams Pocket And Pulley Machine Operator Relationship Specialty Start Date End Date Albert Moraes MD [address] [place] [address] PCP - General Internal Medicine 12/23/15 Jamie Gallegos MD Surgeon Urology 12/23/15 12/23/23 Self-Referred, Patient Referring Physician 12/23/1506/24 Felix Hines MD [address] [place] [address] 1230 [address] [place] [address] [email or web address] Primary Oncologist Medical Oncology 12/23/15 Grover Graves MD [address] [place] [address] 1230 DA [address]30 [place] [address] Urology 01/10/16 Jessica Suarez, GERI, RN [address] [place] [address] [email or web address] Primary Infusion Nurse 07/27/17 12/23/23 Genoveva Goldman NP [address] [place] [address],[address]. [address] [place] [address] [email or web address] Oncology 12/03/17 Amina Moran RN [address] [place] [address]. [place] [address] [email or web address] Primary Infusion Nurse 12/25/23 documented as of this encounter Additional Source Comments The information contained in this document represents components of the legal health record. It is not the complete legal health record.[facility]
--- OUTSIDE RECORDS SUMMARY | 2025-07-23 19:49 | XMS_ITS | Encounter Summary ---
Author Organization [facility] Address [address] [place] [address] [place] [address] Phone Care Team Providers Care Hardness Tester Name Role Phone Albert Moraes MD Primary Care Provider [phone] Jamie Gallegos MD Unavailable Letty galaviz Self-Referred, Patient Unavailable Unavailab Felix Castillo MD Unavailable Grover Graves MD Unavailable Jessica Suarez NP, RN Unavailable Genoveva Goldman NP Unavailable [phone] Amina Moran RN Unavailable Amina [email or web address] Encounter Details Date Type Department Care Team (Late st Contact Info) Description 07/31/2017 Procedure Pass [facility] IMG OUTSIDE IMG [address] [place] [address] Social History Tobacco Use Types Packs/Day Years [...] 11:00 AM EST Blood Draw Laboratory Services, [facility] [address] [facility], 2nd [place] [address] Felix Hines MD [address] [place] [address] 1230 [address] [place] [address] [email or web address] 08/11/2025 12:00 PM EST Office [facility], [facility] [address] [facility], 11th [place] [address] Felix Hines MD [address] [place] [address] 1230 [address] [place] [address] [email or web address] documented as of this encounter Visit Diagnoses Not on filedocumented in this encounter Care Teams Hardness Tester Relationship Specialty Start Date End Date Albert Moraes MD [facility] [address] PCP - General Internal Medicine 12/23/15 Jamie Gallegos MD Surgeon Urology 12/23/15 12/23/23 Self-Referred, Patient Referring Physician 12/23/1506/24 Felix Hines MD [address] [place] [address] [place] [address] [email or web address] Primary Oncologist Medical Oncology 12/23/15 Grover Graves MD [address] [place], [place] [address] [address] [place] [address] Urology 01/10/16 Jessica Suarez, GERI, RN [address] [place] [address] [email or web address] Primary Infusion Nurse 07/27/17 12/23/23 Genoveva Goldman NP [address] [place] [address],[address]. [address] [place] [address] [email or web address] Oncology 12/03/17 Amina Moran RN [address] [place] [address]. [place] [address] [email or web address] Primary Infusion Nurse 12/25/23 documented as of this encounter Additional Source Comments The information contained in this document represents components of the legal health record. It is not the complete legal health record.[facility]
--- OUTSIDE RECORDS SUMMARY | 2025-07-23 19:49 | XMS_ITS | Encounter Summary ---
Author Organization [facility] Address [address] [place] [address] Phone Care Team Providers Care Gas Meter Repair Supervisor Name Role Phone Albert Moraes MD Primary Care Provider [phone] Jamie Gallegos MD Unavailable Felix Sparrow MD Unavailable Grover Graves MD Unavailable [phone] Jessica Suarez NP, RN Unavailable Genoveva Goldman NP Unavailable Amina Moran RN Unavailable Amina [email or web address] Encounter Details Date Type Department Care Team (Late st Contact Info) Description 07/04/2023 Procedure Pass [facility] Instructional Technology Instructor [place] [address] [place] [address] Social History Tobacco Use Types Packs/Day Years [...] Upcoming Encounters Date Type Department Care Team ([facility] st Contact Info) Description 08/11/2025 11:00 AM EST Blood Draw Laboratory Services, [facility] [address] [facility], 2nd [place] [address] Felix Hines MD [address] [place] [address] [email or web address] 08/11/2025 12:00 PM EST Office [facility], [facility] [address] [facility], 11th [place] [address] Felix Hines MD [address] [place] [address] [place] [address] [email or web address] documented as of this encounter Visit Diagnoses Not on filedocumented in this encounter Care Teams Gas Meter Repair Supervisor Relationship Specialty Start Date End Date Albert Moraes MD [address] [place] [address] PCP - General Internal Medicine 12/23/15 Jamie Gallegos MD Surgeon Urology 12/23/15 12/23/23 Felix Hines MD [address] [place] [address] [address] [place] [address] [email or web address] Primary Oncologist Medical Oncology 12/23/15 Grover Graves MD [address] [place] [address] DA [address]30 [place] [address] Urology 01/10/16 Jessica Suarez NP, RN [address] [place] [address] [email or web address] Primary Infusion Nurse 07/27/17 12/23/23 Genoveva Goldman NP [address] [place] [address],12th [address]. [address] [place] [address] Jenna@[email or web address] Oncology 12/03/17 Amina Moran RN [address] [place] [address]. [place] [address] [email or web address] Primary Infusion Nurse 12/25/23 documented as of this encounter Additional Source Comments The information contained in this document represents components of the legal health record. It is not the complete legal health record.[facility]
--- OUTSIDE RECORDS SUMMARY | 2025-07-23 19:49 | XMS_ITS | Encounter Summary ---
Author Organization [facility] Address [address] [place] [address] [place] [address] Phone Care Team Providers Care Access Nurse Name Role Phone Albert Moraes MD Primary Care Provider [phone] Jamie Gallegos MD Unavailable Letty galaviz Self-Referred, Patient Unavailable Unavailab Felix Castillo MD Unavailable [phone] Grover Graves MD Unavailable Jessica Suarez NP, RN Unavailable Genoveva Goldman NP Unavailable Amina Moran RN Unavailable Amina _[email or web address] DU Encounter Details Date Type Department Care Team (Late st Contact Info) Description 05/22/2018 Procedure Pass [facility] CT Imaging, [place] [address] [place] [address] Social History Tobacco Use Types Packs/Day Years [...] 11:00 AM EST Blood Draw Laboratory Services, [facility] [address] [facility], 2nd Floor [place], [place] Felix Hines MD [address] [place] [address] 1230 DA 1230 [place] [address] [email or web address] 08/11/2025 12:00 PM EST Office [facility], [address], 11th [place] [address] Felix Hines MD [address] [place] [address] [email or web address] documented as of this encounter Visit Diagnoses Not on filedocumented in this encounter Care Teams Access Nurse Relationship Specialty Start Date End Date Albert Moraes MD [facility] [address] PCP - General Internal Medicine 12/23/15 Jamie Gallegos MD Surgeon Urology 12/23/15 12/23/23 Self-Referred, Patient Referring Physician 12/23/1506/24 Felix Hines MD [address] [place] [address] [email or web address] Primary Oncologist Medical Oncology 12/23/15 Grover Graves MD [address] [place], [place] [address] [address] [address] Urology 01/10/16 Jessica Suarez, GERI, RN [address] [place] [address] [email or web address] Primary Infusion Nurse 07/27/17 12/23/23 Genoveva Goldman NP [address] [place] [address],[address]. [address] [place] [address] Jenna@[email or web address] Oncology 12/03/17 Amina Moran RN [address] [place] [place] [address]. [place] [address] [email or web address] Primary Infusion Nurse 12/25/23 documented as of this encounter Additional Source Comments The information contained in this document represents components of the legal health record. It is not the complete legal health record.[facility]
--- OUTSIDE RECORDS SUMMARY | 2025-07-23 19:49 | XMS_ITS | Encounter Summary ---
Author Organization [facility] Address [address] [place] [address] [address] [place] [address] Phone Care Team Providers Care Printing Roller Handler Name Role Phone Albert Moraes MD Primary Care Provider [phone] Jamie Gallegos MD Unavailable Letty galaviz Self-Referred, Patient Unavailable Unavailab Felix Castillo MD Unavailable Grover Graves MD Unavailable Jessica Suarez NP, RN Unavailable Genoveva Goldman NP Unavailable Amina Moran RN Unavailable Amina _[email or web address] DU Encounter Details Date Type Department Care Team (Late st Contact Info) Description 10/26/2017 Procedure Pass [facility] [address] [place] [address] Social History Tobacco Use Types Packs/Day Years [...] 11:00 AM EST Blood Draw Laboratory Services, [facility] [address] [facility], 2nd Floor [place], [place] Felix Hines MD [address] [place] [address] 1230 DA 1230 [place] [address] [email or web address] 08/11/2025 12:00 PM EST Office [facility], [address], 11th [place] [address] Felix Hines MD [address] [place] [address] [email or web address] documented as of this encounter Visit Diagnoses Not on filedocumented in this encounter Care Teams Printing Roller Handler Relationship Specialty Start Date End Date Albert Moraes MD [facility] [address] PCP - General Internal Medicine 12/23/15 Jamie Gallegos MD Surgeon Urology 12/23/15 12/23/23 Self-Referred, Patient Referring Physician 12/23/1506/24 Felix Hines MD [address] [place] [address] [email or web address] Primary Oncologist Medical Oncology 12/23/15 Grover Graves MD [address] [place], [place] [address] [address] [address] Urology 01/10/16 Jessica Suarez, GERI, RN [address] [place] [address] Jose@[email or web address] Primary Infusion Nurse 07/27/17 12/23/23 Genoveva Goldman NP [address] [place] [address],[address]. [address] [place] [address] Jenna@[email or web address] Oncology 12/03/17 Amina Moran RN [address] [place] [address]. [place] [address] [email or web address] Primary Infusion Nurse 12/25/23 documented as of this encounter Additional Source Comments The information contained in this document represents components of the legal health record. It is not the complete legal health record.[facility]
--- OUTSIDE RECORDS SUMMARY | 2025-07-23 19:49 | XMS_ITS | Encounter Summary ---
Author Organization [facility] Address [address] [place] [address] [place] [address] Phone Care Team Providers Care Industrial Safety And Health Technician Name Role Phone Albert Moraes MD Primary Care Provider [phone] Jamie Gallegos MD Unavailable Letty galaviz Self-Referred, Patient Unavailable Unavailab Felix Castillo MD Unavailable Grover Graves MD Unavailable Jessica Suarez NP, RN Unavailable Genoveva Goldman NP Unavailable Amina Moran RN Unavailable Amina _[email or web address] DU Encounter Details Date Type Department Care Team (Late st Contact Info) Description 08/09/2017 Procedure Pass [facility], [facility] [place] [address] [facility], Floor [address]1 [place] [address] Social History Tobacco Use Types [...] 11:00 AM EST Blood Draw Laboratory Services, [address], 2nd Floor [place], [place] Felix Hines MD [address] [place] [address] 1230 DA 1230 [place] [address] [email or web address] 08/11/2025 12:00 PM EST Office [facility], [facility] [address] [facility], 11th Floor [place], [place] [phone] Felix Hines MD [address] [place] [address] 1230 DA [facility] [place] [address] [email or web address] documented as of this encounter Visit Diagnoses Not on filedocumented in this encounter Care Teams Industrial Safety And Health Technician Relationship Specialty Start Date End Date Albert Moraes MD [address] [place] [address] PCP - General Internal Medicine 12/23/15 Jamie Gallegos MD Surgeon Urology 12/23/15 12/23/23 Self-Referred, Patient Referring Physician 12/23/1506/24 Felix Hines MD [address] [place] [address] 1230 DA 1230 [place] [address] [email or web address] Primary Oncologist Medical Oncology 12/23/15 Grover Graves MD [address] [place] [address] 1230 DA 1230 [place] [address] Urology 01/10/16 Jessica Suarez, GERI, RN [address] [place] [address] Jose@[email or web address] Primary Infusion Nurse 07/27/17 12/23/23 Genoveva Goldman NP [address] [address],[address]th [address]. [address] [place] [address] Jenna@[email or web address] Oncology 12/03/17 Amina Moran RN [address] [place] [address]. [place] [address] [email or web address] Primary Infusion Nurse 12/25/23 documented as of this encounter Additional Source Comments The information contained in this document represents components of the legal health record. It is not the complete legal health record.[facility]
--- OUTSIDE RECORDS SUMMARY | 2025-07-23 19:49 | XMS_ITS | Clinical Summary ---
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 Active atorvastatin (LIPITOR) 40 mg tabletIndication s:Coronary artery disease involving chipewwa coronary artery of chipewwa heart without angina pectoris,Hyperch olesterolemia Take 1 tablet (40 mg total) by mouth at bedtime. Active aspirin 81 mg EC tabletIndication s:Coronary artery disease involving chipewwa coronary artery of chipewwa heart without angina pectoris Take 1 tablet [...] 11/18/2021 Overview (06/26/2025): October 2021 - severe chipewwa right coronary artery disease status post two-vessel [...] Type Department Care Team Description 06/26/[address] [facility] [address] [place] [address] Rahul Johnson NP 06/25/2025 7:30 AM EST Ancillary Procedure [facility] Cardiology [facility] [address] [place] [phone] Hypertension, unspecified type; Coronary artery disease involving chipewwa coronary artery of chipewwa heart, unspecified whether angina present; Hypercholesterolemia 06/16/2025 10:40 AM EST Office [facility] [address] [place] [address] Rahul Johnson NP Coronary artery disease involving chipewwa coronary artery of chipewwa heart without angina pectoris (Primary Dx); Hypertension, unspecified type; Hypercholesterolemia ; S/P AVR 05/11/[address] [facility] [address] [place] [address] Abhishek Funes MD from Last [...] Hypertension, unspecified type Coronary artery disease involving chipewwa coronary artery of chipewwa heart, unspecified whether angina present Hypercholesterolemia ECG 12-LEAD Routine 06/16/2025 10:40 AM EST Hypertension, unspecified type Coronary artery disease involving chipewwa coronary artery of chipewwa heart without angina pectoris from Last 3 [...] GEMUSE QTc 417 ms GEMUSE P Wave [place] 14 degrees GEMUSE R [place] -40 degrees GEMUSE T [place] 56 degrees GEMUSE ECG Interpretation Normal sinus rhythm Left anterior fascicular block Moderate voltage criteria for LVH, may be normal variant Abnormal ECG When compared with ECG of 24-DEC-2008 14:35, No significant change was found Confirmed by MD GERBER, EM ([id number]) on 06/18/2025 5:07:38 PM GEMUSE 06/16/2025 10:4 0 AM EST 06/18/2025 5:07 PM EST us Rahul Johnson HOSE COUPLING JOINER ECG ORDERABLES Final Resul t GEMUSE from Last 3 Months Insurance MEDICARE [facility] Care Teams Supervisor Laundry Relationship Specialty Start Date End Date Albert Moraes MD [address] [place] [address] PCP - General 01/15/09
--- OUTSIDE RECORDS SUMMARY | 2025-07-23 19:49 | XMS_ITS | Encounter Summary ---
Author Organization [facility] Address [facility] [address] [facility] [address] [place] [address] Phone Care Team Providers Care Porter Bath Name Role Phone Albert Moraes MD Primary Care Provider [phone] Jamie Gallegos MD Unavailable Letty galaviz Self-Referred, Patient Unavailable Unavailab Felix Castillo MD Unavailable Grover Graves MD Unavailable Jessica Suarez NP, RN Unavailable Genoveva Goldman NP Unavailable [phone] Amina Moran RN Unavailable Amina [email or web address] DU Encounter Details Date Type Department Care Team (Latest Contact Info) Description 06/07/2017 Transcribe Orders [facility], [facility] [place], Imaging [facility] [address] [facility], Floor [address]1 [place] [address] Felix Hines MD [address] [place] [address] [email or web address] Blood tests prior to treatment or procedure [...] 11:00 AM EST Blood Draw Laboratory Services, [address], 2nd [place] [address] Felix Hines MD [address] [place] [address] [address] [email or web address] 08/11/2025 12:00 PM EST Office [facility], [address], 11th [place] [address] Felix Hines MD [address] [place] [address] [address] [email or web address] documented as of this encounter Visit Diagnoses Diagnosis Blood tests prior to treatment or procedure- Primary Pre-procedural laboratory examination documented in this encounter Care Teams Porter Bath Relationship Specialty [place] [address] [place] [address] PCP - General Internal Medicine 12/23/15 Jamie Gallegos MD Surgeon Urology 12/23/15 12/23/23 Self-Referred, Patient Referring Physician 12/23/1506/24 Felix Hinse MD [address] [place] [address] [address] [place] [address] [email or web address] Primary Oncologist Medical Oncology 12/23/15 Grover Graves MD [address] [place] [address] DA 1230 [place] [address] Urology 01/10/16 Jessica Suarez NP, RN [address] [place] [address] Jose@[facility] Primary Infusion Nurse 07/27/17 12/23/23 Genoveva Goldman NP [address] [place] [address],[address]. [address] [place] [address] Jenna@[facility] Oncology 12/03/17 Amina oMran RN [address] [place] [address] Jules@[email or web address] Primary Infusion Nurse 12/25/23 documented as of this encounter Additional Source Comments The information contained in this document represents components of the legal health record. It is not the complete legal health record.[facility]
--- OUTSIDE RECORDS SUMMARY | 2025-07-23 19:49 | XMS_ITS | Clinical Summary ---
Author Organization [facility] Address [address] [place] [address] Phone Care Team Providers Care Fire Prevention Specialist Name Role Phone Albert Moraes MD Primary Care Provider [phone] Felix Hines MD Unavailable Grover Graves MD Unavailable Genoveva Goldman NP Unavailable Amina Moran RN Unavailable Amina [email or web address]. DU Allergies Active Allergy Reactions Criticality Noted [...] 10:00 AM EST Telemedicine - audio only [facility] for [facility], [facility] [address] [facility], 11th [place] [address] Stanley Serrano, Felix Lerner MD Prostate cancer (Primary Dx) 05/07/2025 Orders Only [facility] Administrative [address] [place] [address] Michael Rausch MD, PhD from Last 3 [...] 11:00 AM EST Blood Draw Laboratory Services, [facility] [address] [facility], 2nd [place] [address] Felix Hines MD [address] [place] [address] [email or web address] 08/11/2025 12:00 PM EST Office [facility], [facility] [address] [facility], 11th [place] [address] Felix Hines MD [address] [place] [address] [email or web address] Health Maintenance Due Date Last Done [...] this topic Medical Devices Implanted Type Area Patient Financial Rep Device Identifier Shelf Expiration Date Model / Serial / Lot Prosthetic Valve Prosthetic Valve Aorta [employer] [id number] / [id number] / Description:Copy of Card sca nned into [employer] 07/24/23 Static Magnetic Field 1.5T or 3 [...] EDT) SODIUM 141 136 - 145 mmol/L [facility] LIC# [id number] POTASSIUM 4.1 3.4 - 5.1 mmol/L [facility] LIC# [id number] CHLORIDE 106 98 - 107 mmol/L [facility] LIC# [id number] CO2 23 22 - 31 mmol/L [facility] LIC# [id number] BUN 17 6 - 23 mg/dL [facility] LIC# [id number] CREATININE 0.82 0.50 - 1.20 mg/dL [facility] LIC# [id number] GLUCOSE 108(H) 70 - 100 mg/dL [facility] LIC# [id number] ALBUMIN 4.4 3.5 - 5.2 g/dL [facility] LIC# [id number] TOTAL PROTEIN 6.8 6.4 - 8.3 g/dL [facility] LIC# [id number] CALCIUM 9.3 8.8 - 10.7 mg/dL [facility] LIC# [id number] ALKALINE PHOSPHATASE 78 40 - 129 U/L [facility] LIC# [id number] TOTAL BILIRUBIN 0.5 0.2 - 1.2 mg/dL [facility] LIC# [id number] AST 19 <41 U/L [facility] LIC# [id number] ALT 27 <42 U/L [facility] LIC# [id number] GLOBULIN 2.4 2.3 - 4.2 g/dL [facility] LIC# [id number] EGFR 96 >59 mL/min/1.7 3m2 [facility] LIC# [id number] Comment:Estimated glomerular filtration rate calculated using the CKD-EPI refit equation. ANION GAP 12 7 - 17 mmol/L [facility] LIC# [id number] Blood 12/08/2024 12:1 6 PM EDT 12/08/2024 12:59 PM EDT us Felix Hines MD LAB BLOOD BKR ORDERABLES Fi nal Result [facility] LIC# [id number] [address] [place] [address] * CT ABDOMEN/PELVIS WITH CONTRAST (06/20/2021 3:24 [...] our patients and providers by visiting [email or web address] 1. Narrative 06/20/2021 4:[address] [...] for our patients and providers by [email or web address] 1. Felix Hines MD IMG CT ABD/PELVIS Final Res ult from Last 3 Months or Most Recently Relevant to Health Maintenance Insurance MEDICARE PART A & B Member Subscriber Plan / Payer (Ef fective 2024-Present) Name:Milad Tello Member ID:[id number] Relation to Subscriber:Self Name:Milad Tello Subscriber ID:[id number] Payer ID:[id number] Group ID:Not on file Type:Medicare Address: [facility] [employer] [facility].[address] [place] [phone] [facility] MEDICARE SUPPLEMENT MEDICARE PART A & B [facility] MEDICARE SUPPLEMENT [facility] Address: [facility] [employer] [address] [place] [phone] MEDICARE PART A & B [facility] MEDICARE SUPPLEMENT MEDICARE PART A & [place] [address] [place] [address] MEDICARE SUPPLEMENT MEDICARE PART A & B Member Subscriber Plan / Payer (Ef fective 2024-Present) Name:Milad Tello Member ID:[id number] Relation to Subscriber:Self Name:Milad Tello Subscriber ID:[id number] Payer ID:[id number] Group ID:Not on file Type:Medicare Address: [employer] [address] [place] [address] [place] [address] MEDICARE SUPPLEMENT MEDICARE PART A & B [facility] MEDICARE SUPPLEMENT Care Teams Fire Prevention Specialist Relationship Specialty Start Date End Date Albert Moraes MD [address] [place] [address] PCP - General Internal Medicine 12/23/15 Felix Hines MD [address] [facility] 1230 DA [address]30 [place] [address] [email or web address] Primary Oncologist Medical Oncology 12/23/15 Grover Graves MD [address] [facility] 1230 DA [address] [place] [address] Urology 01/10/16 Genoveva Goldman NP [address] [place] [address],[address]. [address] [place] [address] Jenna@[email or web address] Oncology 12/03/17 Amina Moran RN [address] [place] [address]. [place] [address] [email or web address] Primary Infusion Nurse 12/25/23 Additional Source Comments The information contained in this document represents components of the legal health record. It is not the complete legal health record.[facility]
--- OUTSIDE RECORDS SUMMARY | 2025-07-23 19:49 | XMS_ITS | Encounter Summary ---
Author Organization [facility] Address [address] [place] [address] [place] [address] Phone Care Team Providers Care Advanced Practice Rn Name Role Phone Albert Moraes MD Primary Care Provider [phone] Jamie Gallegos MD Unavailable Letty galaviz Self-Referred, Patient Unavailable Unavailab Felix Castillo MD Unavailable Grover Graves MD Unavailable Jessica Suarez NP, RN Unavailable Genoveva Goldman NP Unavailable Amina Moran RN Unavailable Amina [email or web address] DU Encounter Details Date Type Department Care Team (Late st Contact Info) Description 02/14/2018 Procedure Pass [facility] MR Imaging, Black [address] [place] [address] Social History Tobacco Use Types Packs/Day Years [...] 11:00 AM EST Blood Draw Laboratory Services, [facility] [address] [facility], 2nd Floor [place], [place] Felix Hines MD [address] [place] [address] 1230 DA 1230 [place] [address] [email or web address] 08/11/2025 12:00 PM EST Office [facility], [address], 11th [place] [address] Felix Hines MD [address] [place] [address] [email or web address] documented as of this encounter Visit Diagnoses Not on filedocumented in this encounter Care Teams Advanced Practice Rn Relationship Specialty Start Date End Date Albert Moraes MD [facility] [address] PCP - General Internal Medicine 12/23/15 Jamie Gallegos MD Surgeon Urology 12/23/15 12/23/23 Self-Referred, Patient Referring Physician 12/23/1506/24 Felix Hines MD [address] [place] [address] [email or web address] Primary Oncologist Medical Oncology 12/23/15 Grover Graves MD [address] [place], [place] [address] [address] [address] Urology 01/10/16 Jessica Suarez, GERI, RN [address] [place] [address] [email or web address] Primary Infusion Nurse 07/27/17 12/23/23 Genoveva Goldman NP [address] [place] [address],[address]th [address]. [address] [place] [address] Jenna@[email or web address] Oncology 12/03/17 Amina Moran RN [address] [place] [address]. [place] [address] [email or web address] Primary Infusion Nurse 12/25/23 documented as of this encounter Additional Source Comments The information contained in this document represents components of the legal health record. It is not the complete legal health record.[facility]
--- OUTSIDE RECORDS SUMMARY | 2025-07-23 19:49 | XMS_ITS | Encounter Summary ---
Author Organization [facility] Address [address] [place] [address] [place] [address] Phone Care Team Providers Care Fashion Styling Intern Name Role Phone Albert Moraes MD Primary Care Provider [phone] Jamie Gallegos MD Unavailable Letty galaviz Self-Referred, Patient Unavailable Unavailab Felix Castillo MD Unavailable Grover Graves MD Unavailable Jessica Suarez NP, RN Unavailable Genoveva Goldman NP Unavailable Amina Moran RN Unavailable Amina _[email or web address]. DU Encounter Details Date Type Department Care Team (Late st Contact Info) Description 05/29/2017 Procedure Pass [facility] OUTSIDE IMG 450 [place] [address] Social History Tobacco Use Types Packs/Day Years [...] 11:00 AM EST Blood Draw Laboratory Services, [facility] 450 [facility], 2nd [place] [address] Felix Hines MD [address] [place] [address] 1230 DA 1230 [place] [address] [email or web address] 08/11/2025 12:00 PM EST Office Visit [facility], [facility] 450 [facility], 11th [place] [address] Felix Hines MD [address] [place] [address] 1230 1230 [place] [address] [email or web address] documented as of this encounter Visit Diagnoses Not on filedocumented in this encounter Care Teams Fashion Styling Intern Relationship Specialty Start Date End Date Albert Moraes MD [facility] [address] PCP - General Internal Medicine 12/23/15 Jamie Gallegos MD Surgeon Urology 12/23/15 12/23/23 Self-Referred, Patient Referring Physician 12/23/1506/24 Felix Hines MD [address] [place] [address] [place] [address] [email or web address] Primary Oncologist Medical Oncology 12/23/15 Grover Graves MD [address] [place], [place] [address] DA 1230 [place] [address] Urology 01/10/16 Jessica Suarez, GERI, RN [address] [place] [address] [email or web address] Primary Infusion Nurse 07/27/17 12/23/23 Genoveva Goldman NP [address] [place] [address],[address]th [address]. [address] [place] [address] Jenna@[email or web address] Oncology 12/03/17 Amina Moran RN [address] [place] [address]. [place] [address] [email or web address] Primary Infusion Nurse 12/25/23 documented as of this encounter Additional Source Comments The information contained in this document represents components of the legal health record. It is not the complete legal health record.[facility]
--- OUTSIDE RECORDS SUMMARY | 2025-07-23 19:49 | XMS_ITS | Encounter Summary ---
Author Organization [facility] Address [address] [place] [address] [place] [address] Phone Care Team Providers Care Valve Mechanic Name Role Phone Albert Moraes MD Primary Care Provider [phone] Jamie Gallegos MD Unavailable Letty galaviz Self-Referred, Patient Unavailable Unavailab Felix Castillo MD Unavailable Grover Graves MD Unavailable Jessica Suarez NP, RN Unavailable Genoveva Goldman NP Unavailable Amina Moran RN Unavailable Amina _[email or web address]. DU Encounter Details Date Type Department Care Team (Late st Contact Info) Description 05/22/2018 Procedure Pass [facility] MR Imaging, Black [address] [place] [address] Social History Tobacco Use Types Packs/Day Years [...] 11:00 AM EST Blood Draw Laboratory Services, [facility] [address] [facility], 2nd Floor [place], [place] Felix Hines MD [address] [place] [address] 1230 DA 1230 [place] [address] [email or web address] 08/11/2025 12:00 PM EST Office Visit [facility], [address], 11th [place] [address] Felix Hines MD [address] [place] [address] [email or web address] documented as of this encounter Visit Diagnoses Not on filedocumented in this encounter Care Teams Valve Mechanic Relationship Specialty Start Date End Date Albert Moraes MD [facility] [address] PCP - General Internal Medicine 12/23/15 Jamie Gallegos MD Surgeon Urology 12/23/15 12/23/23 Self-Referred, Patient Referring Physician 12/23/1506/24 Felix Hines MD [address] [place] [address] [email or web address] Primary Oncologist Medical Oncology 12/23/15 Grover Graves MD [address] [place], [place] [address] [address] [address] Urology 01/10/16 Jessica Suarez, GERI, RN [address] [place] [address] [email or web address] Primary Infusion Nurse 07/27/17 12/23/23 Genoveva Goldman NP [address] [place] [address],[address]th [address]. [address] [place] [address] Jenna@[facility] Oncology 12/03/17 Amina Moran RN [address] [place] [address]. [place] [address] [email or web address]@[email or web address] Primary Infusion Nurse 12/25/23 documented as of this encounter Additional Source Comments The information contained in this document represents components of the legal health record. It is not the complete legal health record.[facility]
--- OUTSIDE RECORDS SUMMARY | 2025-07-23 19:49 | XMS_ITS | Encounter Summary ---
Author Organization [facility] Address [address] [place] [address] [place] [address] Phone Care Team Providers Care Recycling Operations Manager Name Role Phone Albert Moraes MD Primary Care Provider [phone] Jamie Gallegos MD Unavailable Letty galaviz Self-Referred, Patient Unavailable Unavailab Felix Castillo MD Unavailable Grover Graves MD Unavailable Jessica Suarez NP, RN Unavailable Genoveva Goldman NP Unavailable Amina Moran RN Unavailable Amina _[email or web address]. DU Encounter Details Date Type Department Care Team (Late st Contact Info) Description 10/26/2017 Procedure Pass [facility] MR Imaging, Black [address] [place] [address] Social History Tobacco Use Types Packs/Day Years [...] 11:00 AM EST Blood Draw Laboratory Services, [facility] 450 [facility], 2nd Floor [place], [place] Felix Hines MD [address] [place] [address] 1230 DA 1230 [place] [address] [email or web address] 08/11/2025 12:00 PM EST Office Visit [facility], [address], 11th [place] [address] Felix Hines MD [address] [place] [address] [email or web address] documented as of this encounter Visit Diagnoses Not on filedocumented in this encounter Care Teams Recycling Operations Manager Relationship Specialty Start Date End Date Albert Moraes MD [facility] [address] PCP - General Internal Medicine 12/23/15 Jamie Gallegos MD Surgeon Urology 12/23/15 12/23/23 Self-Referred, Patient Referring Physician 12/23/1506/24 Felix Hines MD [address] [place] [address] [email or web address] Primary Oncologist Medical Oncology 12/23/15 Grover Graves MD [address] [place], [place] [address] [address] [address] Urology 01/10/16 Jessica Suarez, GERI, RN [address] [place] [address] [email or web address] Primary Infusion Nurse 07/27/17 12/23/23 Genoveva Goldman NP [address] [place] [address],12th [address]. [address] [place] [address] Jenna@[email or web address] Oncology 12/03/17 Amina Moran RN [address] [place] [address]. [place] [address] [email or web address] Primary Infusion Nurse 12/25/23 documented as of this encounter Additional Source Comments The information contained in this document represents components of the legal health record. It is not the complete legal health record.[facility]
--- OUTSIDE RECORDS SUMMARY | 2025-07-23 19:49 | XMS_ITS | Encounter Summary ---
Author Organization [facility] Address [address] [place] [address] [place] [address] Phone Care Team Providers Care Chemical Processing Supervisor Name Role Phone Albert Moraes MD Primary Care Provider [phone] Jamie Gallegos MD Unavailable Letty galaviz Self-Referred, Patient Unavailable Unavailab Felix Castillo MD Unavailable [phone] Grover Graves MD Unavailable Jessica Suarez NP, RN Unavailable Genoveva Goldman NP Unavailable Amina Moran RN Unavailable Amina _[email or web address]. DU Encounter Details Date Type Department Care Team (Late st Contact Info) Description 09/10/2017 Procedure Pass [facility] MR Imaging, Black [address] [place] [address] Social History Tobacco Use Types Packs/Day Years [...] 11:00 AM EST Blood Draw Laboratory Services, [facility] 450 [facility], 2nd Floor [place], [place] Felix Hines MD [address] [place] [address] 1230 DA 1230 [place] [address] [email or web address] 08/11/2025 12:00 PM EST Office Visit [facility], [address], 11th [place] [address] Felix Hines MD [address] [place] [address] [email or web address] documented as of this encounter Visit Diagnoses Not on filedocumented in this encounter Care Teams Chemical Processing Supervisor Relationship Specialty Start Date End Date Albert Moraes MD [facility] [address] PCP - General Internal Medicine 12/23/15 Jamie Gallegos MD Surgeon Urology 12/23/15 12/23/23 Self-Referred, Patient Referring Physician 12/23/1506/24 Felix Hines MD [address] [place] [address] [email or web address] Primary Oncologist Medical Oncology 12/23/15 Grover Graves MD [address] [place], [place] [address] [address] [address] Urology 01/10/16 Jessica Suarez, GERI, RN [address] [place] [address] Jose@[email or web address] Primary Infusion Nurse 07/27/17 12/23/23 Genoveva Goldman NP [address] [place] [address],[address]th [address]. [address] [place] [address] Jenna@[email or web address] Oncology 12/03/17 Amina Moran RN [address] [place] [address]. [place] [address] [email or web address] Primary Infusion Nurse 12/25/23 documented as of this encounter Additional Source Comments The information contained in this document represents components of the legal health record. It is not the complete legal health record.[facility]
--- OUTSIDE RECORDS SUMMARY | 2025-07-23 19:49 | XMS_ITS | Encounter Summary ---
Author Organization [facility] Address [facility] [employer] [facility] [address] [place] [address] Phone Care Team Providers Care Pilling Machine Operator Name Role Phone Albert Moraes MD Primary Care Provider [phone] Jamie Gallegos MD Unavailable Felix Sparrow MD Unavailable [phone] Grover Graves MD Unavailable Jessica Suarez NP, RN Unavailable Genoveva Goldman NP Unavailable Amina Moran RN Unavailable Amina [email or web address] DU Encounter Details Date Type Department Care Team (Late st Contact Info) Description 07/26/2020 Procedure Pass [facility] CT Imaging, Black [address] [place] [address] Social History Tobacco Use Types Packs/Day Years [...] 11:00 AM EST Blood Draw Laboratory Services, [facility] [address] [facility], 2nd [place] [address] Felix Hines MD 44 [facility] 1230 DA 1230 [place] [address] [email or web address] 08/11/2025 12:00 PM EST Office [facility], [facility] 450 [facility], 11th [place] [address] Felix Hines MD [address] [place] [address] [email or web address] documented as of this encounter Visit Diagnoses Not on filedocumented in this encounter Care Teams Pilling Machine Operator Relationship Specialty [place] [address] [place] [address] PCP - General Internal Medicine 12/23/15 Jamie Gallegos MD Surgeon Urology 12/23/15 12/23/23 Felix Hines MD [address] [place] [address] [email or web address] Primary Oncologist Medical Oncology 12/23/15 Grover Graves MD [address] [place] [address] 1230 DA 1230 [place] [address] Urology 01/10/16 Jessica Suarez, DESIGN ENGINEERING MANAGER, RN [address] [place] [address] Jose@[email or web address] Primary Infusion Nurse 07/27/17 12/23/23 Genoveva Goldman NP 450 [facility],12th Floor. [address] [place] [address] Jenna@[email or web address] Oncology 12/03/17 Amina Moran RN [address] [place] [address]. [place] [address] [email or web address] Primary Infusion Nurse 12/25/23 documented as of this encounter Additional Source Comments The information contained in this document represents components of the legal health record. It is not the complete legal health record.[facility]
--- OUTSIDE RECORDS SUMMARY | 2025-07-23 19:49 | XMS_ITS | Encounter Summary ---
Author Organization [facility] Address [address] [place] [address] [place] [address] Phone Care Team Providers Care Bologna Lacer Name Role Phone Albert Moraes MD Primary Care Provider [phone] Jamie Gallegos MD Unavailable Felix Sparrow MD Unavailable Grover Graves MD Unavailable [phone] Jessica Suarez NP, RN Unavailable Genoveva Goldman NP Unavailable Amina Moran RN Unavailable Amina [email or web address] DU Encounter Details Date Type Department Care Team (Late st Contact Info) Description 05/30/2021 Procedure Pass [facility], [facility] [place] 450 [facility], Floor [address]1 [place] [address] Social History Tobacco Use Types Packs/Day Years [...] 11:00 AM EST Blood Draw Laboratory Services, [facility] 450 [facility], 2nd Floor [place], [place] Felix Hines MD 44 [facility] 1230 DA 1230 [place] [address] [email or web address] 08/11/2025 12:00 PM EST Office [facility], [facility] 450 [facility], 11th Floor [place], [place] [phone] Felix Hines MD [address] [place] [address] [email or web address] documented as of this encounter Visit Diagnoses Not on filedocumented in this encounter Care Teams Bologna Lacer Relationship Specialty Start Date End Date Albert Moraes MD [address] [place] [address] PCP - General Internal Medicine 12/23/15 Jamie Gallegos MD Surgeon Urology 12/23/15 12/23/23 Felix Hines MD [address] [place] [address] [email or web address] Primary Oncologist Medical Oncology 12/23/15 Grover Graves MD [address] [place] [address] Urology 01/10/16 Jessica Suarez, GERI, RN [address] [place] [address] [email or web address] Primary Infusion Nurse 07/27/17 12/23/23 Genoveva Goldman NP [address] [place] [address],[address]th [address]. [address] [place] [address] Jenna@[facility] Oncology 12/03/17 Amina Moran RN [address] [place] [address]. [place] [address] [email or web address] Primary Infusion Nurse 12/25/23 documented as of this encounter Additional Source Comments The information contained in this document represents components of the legal health record. It is not the complete legal health record.[facility]
== END 2025-07-23 08:57 | disposition home or self-care (01) ==
LOC: HO.LNP 08:56
PROVIDERS: PCP Internal Medicine; Visit Provider Urology
DX: C61 Malignant neoplasm of prostate (principal); C67.9 Malignant neoplasm of bladder, unspecified; N30.40 Irradiation cystitis without hematuria
CPT/HCPCS: 52000; 81003; 88112; 99212

== ENCOUNTER 2025-07-23 08:56 | Outpatient (AMB) | payer MEDICARE, SELFPAY ==
--- NOTE | 2025-07-23 09:10 | A.OFFVIS_ITS ---
Intake Visit Reasons: Cysto SET UA Intake Note: Reason for Visit: Cystoscopy(Bladder Ca) Urology Meds: Pentoxifylline Blood Thinners: None Labs: None Last Fish: 2022 Imaging: None Last PVR: None URO G-HD Cystoscope [id number] EXP01/13/2028 Nuclear Supervising Operator Required: No Allergies ciprofloxacin (From CIPRO) Allergy (Severe, Verified 01/20/25 09:09) RASH sulfamethoxazole (From BACTRIM) Allergy (Severe, Verified 01/20/25 09:09) GI DISTRESS trimethoprim (From BACTRIM) Allergy (Severe, Verified 01/20/25 09:09) GI DISTRESS Sulfa (Sulfonamide Antibiotics) Allergy (Unknown, Verified 01/20/25 09:09) vomiting OYSTERS Allergy (Severe, Uncoded 01/20/25 09:09) SEVERE GI REACTION HPI Comments Details: Milda is a very pleasant male. He is patient of Dr. Moraes. He is seen for the following conditions - prostate cancer recurrent - Dr Hines [facility] - bladder cancer - radiation cystitis Six month follow-up cystoscopy Radiation cystitis Slowly rising PSA currently up to 2.9 he tells me Did discuss possibility of RUFINA 177 if PSMA PET shows avidity Six-month follow-up repeat cysto 07/30 check cystoscopy - radiation cystitis 01/28 Check cysto - stable Recent PSMA PET scan at [facility] showed decreased avidity of prostate bed. Has been taken off abiraterone. Did have single dose GnRH whilst on antiandrogen. 12/27 surveillance cystoscopy - FISH negative [facility] decided not to pursue targeted cryotherapy on prostate bed. For now treated with abiraterone 05/28 Recent PSMA scan shows continued small lesion within prostate bed. PSA now 4.6. Has been assessed at [facility] for directed cryotherapy. 11/25 repeat PMSA with ill-defined lesion in prostate bed. PSA 2.6. Apparent doubling time approximately [address] Hines will be reassessing for repeat cycle of antiandrogen therapy Prostate cancer: Initial diagnosis 2008 pT3a disease - prostatectomy, salvage radiation, spot radiation, anti androgen therapy Follows a [facility] Currently therapy ceased January 2020 PSA checked every 4 months 06/27 PMSA - reactive pelvic nodes, PSA 1.7 Prostate cancer was diagnosed 2008. PSA at diagnosis 4.5. Diagnosed by Dr Leonard. 05/17 cores all >50% - pT3a Group 2 2008 RRP - salvage radiation 2011 - rising PSA dt 10mth 2017 started GnRH and antiandrogens - 10/21 XRt to solitary sacral met. The Saadia grade is 3+4 pT3a at prostatectomy. TNM Classification of Malignant Tumours (TNM) T1c. The D'Marc (NCCN) risk category is Intermediate Risk (PSA 10-20, Gl 7, T2). Initial therapy included Primary treatment, Radical prostatectomy, Additional treatment, Watchful Waiting, , Additional treatment, radiation therapy 2013 Dr. Arteaga [facility] Additional treatment, XRT to pelvic bone lesion DF 11/21, start xitiga Dr Hines DF , Additional treatment GnRH - 04/03/18, 10/03/18, 09/30/19. Recent labs included a PSA (prostate-specific antigen) November 2015 2.0, Mar 2016 2.4, Jul 2016 3.3, November 2016 4.5, January 2017 5.2, Apr 2017 6.4, 09/23 PSA 8.7, T 447, 01/21 PSA 0.09 T 1, 07/23 PSA < 0.2, 02/21 PSA < 0.2, 09/25 <0.2. Recent imaging included a DEXA scan 01/19 osteopenia 02/19 , a bone scan, with no evidence of metastasis - sacroiliac question 04/22 , an MRI (magnetic resonance imaging) - right sacroiliac 1.5 cm lesion suspicious for metastatic disease 08/23 bone biosy at [facility] confirm metastatic disease 05/23 MRI - response to radiation 09/24 DEXA osteropenia 05/[address]/MRI at [facility] - NAD. Associated conditions erectile dysfunction Yes hematuria Yes hot flashes No incontinence No osteopenia No pathologic fracture No radiation cystitis Yes rectal urgency Yes Therapeutic plan: OR for laser of vessels. Current symptoms include None . Bladder Cancer: Recurrent superficial low-grade Cysto - bladder radiation changes - question velvet change on left sidewall. Fish performed Bladder cancer was initially diagnosed during evaluation for microscopic hematuria 2008. 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 Recurrence Risk per EORTC Low Risk. Bladder cancer risk factors Organic Solvent exposure No pelvic radiation Yes Prior Cystoscopy November 2015 , Negative Mar 2016 - BBx anterior wall October 2016 - nonhealing area anterior wall February 2017 - healed. Small red area posterior 05/22 , Negative 09/23 - minor red areas consistent with radiation cystitis 01/21 minor red areas 05/23 - looking stable, at anastamosis on right side some minor pouching 09/24 - Red splotches - healed on anterior wall 09/25 NAD, 02/22 Radiation changes, 06/25 left velvet patch - FISH planned Prior Cytology 2013 FISH, Abnormal - not positive 03/2016 Cytology - Atypia suspicious for malignancy 08/22 , Negative for malignancy 11/20 , Negative for malignancy 02/19, Negative for malignancy - well healed 06/23 FISH - negative 09/24 Cytology - , Negative for malignancy, 01/26 Atypical, 06/28 fish negative Prior Imaging CT scan with contrast 2011 - negative MRI with contrast, Negative Mar 2016 - CT scan with contrast, 2mm [facility] [employer], otherwise NAD. Planned treatment surveillance protocol. [facility] Medical History Secondary malignant neoplasm of bone Elevated blood pressure reading Surgical History History of surgery History of appendectomy History of prostatectomy Review of Systems Const Denies chills and Denies fever(s) Card Reports no additional complaints and Denies syncope Resp Denies cough GI Denies abdominal pain and Denies heartburn Reports as per HPI and Denies change in libido Neuro Denies syncope Psych Denies change in libido Endo Denies change in libido Physical Exam Const General: cooperative, healthy appearing, comfortable and no acute distress Orientation/consciousness: patient oriented x3 HEENT Face and sinus: Yes normal facial exam Mouth: moist mucous membranes Neck Neck: Yes normal visual inspection, Yes full ROM and Yes trachea midline Chest Chest palpation & inspection: normal inspection of the chest Resp Effort & Inspection: normal respiratory effort, able to speak in complete sentences and no respiratory distress GI Inspection: Yes normal to inspection Back/Spine/Pelvis Cervical Spine: normal cervical lordosis Thoracic/Lumbar Spine: thoracic and lumbar spine normal to inspection Skin General skin exam: no rashes or lesions noted Neuro General: patient oriented x3, gait normal, tone normal and moves all extremities Extrem General: Yes normal to inspection and Yes capillary refill normal Office Procedures Cystoscopy Consent Discussed risk and benefit or proposed procedure with the patient. Information consent for procedure given to the patient. Discussed technical aspects, risks, benefits and alternatives in full. Addressed all of the patient's questions and concerns regarding the procedure. The patient demonstrated knowledge and understanding. They wish to proceed with this procedure. Preparation The patient was prepped in the usual manner. A precision lens grinder was present and in the room. Genitalia was prepped with betadine solution in a sterile manner. Lidocaine Jelly 2% was placed into the urethra and 16Fr flexible Olympus cystoscope was inserted into the meatus after adequate lubrication. Procedure Consent confirmed Genitalia prepped and draped using topical antiseptic and lidocaine jelly Clamp placed on penile glans to allow adequate dwell contact time with anesthetic Cystoscopy performed using a sterile disposable Urovue digital 16 Greenlandic cystoscope Meatus circumcised Urethra anterior and posterior urethra normal Prostatic Urethra prior prostatectomy Bladder examination with retroflexion of cystoscope Bladder Orifices normal shape and position Bladder Capacity Normal Trabeculations grade 2 Cellule Formation small Diverticulum Formation None Mucosal Erythema radiation cystitis with neovascularity Bladder Tumor None Patient tolerated procedure [id number] DISPOSABLE SCOPE URO-G FLEXIBLE SCOPE Procedure code (CPT) selection complete Office Meds lidocaine HCl 2 % mucosal jelly in applicator Performing Provider: Grover Graves MD Performing Location: [facility] Administered by: Rasheed Watt LPN on 07/23/25 09:22 Dose Route Admin Location Dispensed Lot Number Expiration Date [facility] Manager Coding 10 mL intra-urethral 10 mL nitrofurantoin monohydrate/macrocrystals 100 mg capsule Performing Provider: Grover Graves MD Performing Location: [facility] Administered by: Rasheed Watt LPN on 07/23/25 09:22 Dose Route Admin Location Dispensed Lot Number Expiration Date [place] Manager Coding 100 mg PO 1 cap Results AMB Urinalysis, Automated UA Leukoctes 0 Mylene/uL Last Edit by BECKY Davies on 07/23/25 09:21 UA Nitrite Negative Last Edit by BECKY Davies on 07/23/25 09:21 UA Urobilinogen 0.2 mg/dL Last Edit by BECKY Davies on 07/23/25 09:2 1 UA Protein 15 mg/dL Last Edit by Luna Boyd FOXA on 07/23/25 09:21 UA pH 6.0 Last Edit by Luna Boyd RMA on 07/23/25 09:21 UA Blood 0 Doyle/uL Last Edit by Luna Boyd, RMA on 07/23/25 09:21 UA Specific [place] 1.015 Last Edit by Luna Boyd, RMA on 07/23/25 09: 21 UA Ketone Negative Last Edit by Luna Boyd RMA on 07/23/25 09:21 UA Bilirubin 0 mg/dL Last Edit by Luna Boyd, RMA on 07/23/25 09:21 UA Glucose 0 mg/dL Last Edit by FOX DaviesA on 07/23/25 09:21 Assessment & Plan Assessment & Plan (1) Radiation cystitis: Comment: Last bleed 2020- treated with tranexamic acid Code(s): N30.40 - Irradiation cystitis without hematuria Category: Medical (2) Prostate cancer: Comment: Metastatic. Status post radiation to area. Had 2 years hormones and zytiga - therapy stopped January 2020. Managed at [facility] Code(s): C61 - Malignant neoplasm of prostate Category: Medical (3) Bladder cancer: Comment: Last cysto 10/24 Code(s): C67.9 - Malignant neoplasm of bladder, unspecified Category: Medical Plan Continue surveillance Orders: Orders AMB Urinalysis Automated Today Z13.9 - Encounter for screening, unspecified Urine Cytology Today C67.9 - Malignant neoplasm of bladder, unspecified AMB Cystoscopy Today C67.9 - Malignant neoplasm of bladder, unspecified Medications: Refilled tranexamic acid 650 mg PO BID 12 tabs 0RF 6 days N30.40 - Irradiation cystitis without hematuria Patient Instructions: This note is constructed using voice recognition software. While every effort has been made to ensure accuracy metal door assembler errors may have been included. Imaging studies, laboratory and physical exam results were discussed and reviewed in detail. No major barriers to patient understanding were identified. An opportunity to ask questions regarding the treatment plan was provided. All questions were answered. The patient expressed understanding and agreement with the above treatment plan. The patient is aware they should contact our office by phone for worsening of their current condition or the appearance of new urologic symptoms. Compliance is encouraged with any medications and followup testing that is ordered. It is a privilege to participate in the urologic care of your patient. If you have any questions or concerns regarding treatment for the above conditions, or other urologic issues, please do not hesitate to contact me. The office telephone contact is [phone]. Sincerely, Dr Grover Graves MD, [facility] - Urology Compassionate Specialist Care for the Genitourinary System Coding Level of Care Code Est Pt Level 3 (13931) Add On Problem Visit Only Diagnoses Radiation cystitis N30.40 Prostate cancer C61 Bladder cancer C67.9 CPT Codes Cystoscopy - CPT: [id number] ([id number])
--- OUTSIDE RECORDS SUMMARY | 2025-07-23 09:45 | XMS_ITS | Encounter Summary ---
Author Organization [facility] Address [address] [place] [address] [place] [address] Phone Care Team Providers Care Workers Compensation Claims Assistant Name Role Phone Albert Moraes MD Primary Care Provider [phone] Jamie Gallegos MD Unavailable Letty galaviz Self-Referred, Patient Unavailable Unavailab Felix Castillo MD Unavailable [phone] Grover Graves MD Unavailable [phone] Jessica Suarez NP, RN Unavailable [phone] Genoveva Goldman NP Unavailable [phone] Amina Moran RN Unavailable [email or web address] Encounter Details Date Type Department Care Team (Late st Contact Info) Description 08/09/2017 Procedure Pass [facility] Imaging Department, [facility] [place] [address] [facility] [place] [address] Social History Tobacco Use Types Packs/Day Years Used Date Smoking Tobacco: Every Day Cigarettes 0.5 15 Alcohol Use Standard Drinks/Week Comments Yes 0 (1 standard drink = 0.6 oz pure alcohol) 10 drinks (beer, liquor) per week Sex and Gender Information Value Date Recorded Sex Assigned at Not on file Legal Sex Male 5:22 PM EST Gender Identity Not on file Sexual Orientation Not on file documented as of this encounter Plan of Treatment Upcoming Encounters Date Type Department Care Team (Late st Contact Info) Description 08/11/2025 11:00 AM EST Blood Draw Laboratory Services, [address] Floor [place], [place] Felix Hines MD [address] [place] [address] [address] [place] [address] [email or web address] 08/11/2025 12:00 PM EST Office Visit [facility], [facility] [address] [facility], [address]th Floor [place], [place] [phone] Felix Hines MD [address] [place] [address] [address] [facility] [place] [address] [email or web address] documented as of this encounter Visit Diagnoses Not on filedocumented in this encounter Care Teams Workers Compensation Claims Assistant Relationship Specialty Start Date End Date Albert Moraes MD [address] [place] [address] PCP - General Internal Medicine 12/23/15 Jamie Gallegos MD Surgeon Urology 12/23/15 12/23/23 Self-Referred, Patient Referring Physician 12/23/1506/24 Felix Hines MD [address] [place] [address] [address] [place] [address] [email or web address] Primary Oncologist Medical Oncology 12/23/15 Grover Graves MD [address] [place] [address] [address] [place] [address] Urology 01/10/16 Jessica Suarez, GERI, RN [address] [place] [id number] [email or web address] Primary Infusion Nurse 07/27/17 12/23/23 Genoveva Goldman NP [address] [place] [address],[address] [place] [address] [email or web address] Oncology 12/03/17 Amina Moran RN [address] [place] [address]. [place] [address] [email or web address] Primary Infusion Nurse 12/25/23 documented as of this encounter Additional Source Comments The information contained in this document represents components of the legal health record. It is not the complete legal health record.[facility]
--- OUTSIDE RECORDS SUMMARY | 2025-07-23 09:45 | XMS_ITS | Encounter Summary ---
Author Organization [facility] Address [address] [place] [address] [place] [address] Phone Care Team Providers Care Hand Stonecutter Name Role Phone Albert Moraes MD Primary Care Provider [phone] Jamie Gallegos MD Unavailable Letty galaviz Self-Referred, Patient Unavailable Unavailab Felix Castillo MD Unavailable Grover Graves MD Unavailable [phone] Jessica Suarez NP, RN Unavailable [phone] Genoveva Goldman NP Unavailable Amina Moran RN Unavailable Amina [email or web address] [place] Encounter Details Date Type Department Care Team (Late st Contact Info) Description 02/14/2018 Procedure Pass [facility] MR Imaging, Black [address] [place] [address] Social History Tobacco Use Types Packs/Day Years Used Date Smoking Tobacco: Every Day Cigarettes 0.5 15 Smokeless Tobacco: Never Comments:social etoh Alcohol Use Standard Drinks/Week Comments Yes 0 [...] 11:00 AM EST Blood Draw Laboratory Services, [facility] [address] [facility], 2nd Floor [place], [place] Felix Hines MD [address] [place] [address] 1230 DA 1230 [place] [address] [email or web address] 08/11/2025 12:00 PM EST Office Visit [facility], [address], 11th [place] [address] Felix Hines MD [address] [place] [address] [email or web address] documented as of this encounter Visit Diagnoses Not on filedocumented in this encounter Care Teams Hand Stonecutter Relationship Specialty Start Date End Date Albert Moraes MD [facility] [address] PCP - General Internal Medicine 12/23/15 Jamie Gallegos MD Surgeon Urology 12/23/15 12/23/23 Self-Referred, Patient Referring Physician 12/23/1506/24 Felxi Hines MD [address] [place] [address] [email or web address] Primary Oncologist Medical Oncology 12/23/15 Grover Graves MD [address] [place], [place] [address] [address] [address] Urology 01/10/16 Jessica Suarez, GERI, RN [address] [place] [address] [email or web address] Primary Infusion Nurse 07/27/17 12/23/23 Genoveva Goldman NP [address] [place] [address],[address]th [address]. [address] [place] [address] [email or web address] Oncology 12/03/17 Amina Moran RN [address] [place] [address]. [place] [address] [email or web address] Primary Infusion Nurse 12/25/23 documented as of this encounter Additional Source Comments The information contained in this document represents components of the legal health record. It is not the complete legal health record.[facility]
--- OUTSIDE RECORDS SUMMARY | 2025-07-23 09:45 | XMS_ITS | Encounter Summary ---
Author Organization [facility] Address [address] [place] [address] [address] [place] [address] Phone Care Team Providers Care Photo Technologist Name Role Phone Albert Moraes MD Primary Care Provider [phone] Jamie Gallegos MD Unavailable Letty galaviz Self-Referred, Patient Unavailable Unavailab Felix Castillo MD Unavailable [phone] Grover Graves MD Unavailable Jessica Suarez NP, RN Unavailable Genoveva Goldman NP Unavailable Amina Moran RN Unavailable Amina [email or web address] [place] Encounter Details Date Type Department Care Team (Late st Contact Info) Description 10/26/2017 Procedure Pass [facility] [address] [place] [address] Social History Tobacco Use Types Packs/Day Years [...] 11:00 AM EST Blood Draw Laboratory Services, [facility] 450 [facility], 2nd Floor [place], [place] Felix Hines MD [address] [place] [address] 1230 DA 1230 [place] [address] [email or web address] 08/11/2025 12:00 PM EST Office Visit [facility], [address], [address]th [place] [address] Felix Hines MD [address] [place] [address] [email or web address] documented as of this encounter Visit Diagnoses Not on filedocumented in this encounter Care Teams Photo Technologist Relationship Specialty Start Date End Date Albert Moraes MD [facility] [address] PCP - General Internal Medicine 12/23/15 Jamie Gallegos MD Surgeon Urology 12/23/15 12/23/23 Self-Referred, Patient Referring Physician 12/23/1506/24 Felix Hines MD [address] [place] [address] [email or web address] Primary Oncologist Medical Oncology 12/23/15 Grover Graves MD [address] [place], [place] [address] [address] [address] Urology 01/10/16 Jessica Suarez, GERI, RN [address] [place] [address] [email or web address] Primary Infusion Nurse 07/27/17 12/23/23 Genoveva Goldman NP [address] [place] [address],[address]. [address] [place] [address] [email or web address] Oncology 12/03/17 Amina Moran RN [address] [place] [address]. [place] [address] [email or web address] Primary Infusion Nurse 12/25/23 documented as of this encounter Additional Source Comments The information contained in this document represents components of the legal health record. It is not the complete legal health record.[facility]
--- OUTSIDE RECORDS SUMMARY | 2025-07-23 09:45 | XMS_ITS | Encounter Summary ---
Author Organization [facility] Address [address] [place] [address] Phone Care Team Providers Care Lathe Winder Name Role Phone Albert Moraes MD Primary Care Provider [phone] Jamie Gallegos MD Unavailable Felix Sparrow MD Unavailable Grover Graves MD Unavailable Jessica Suarez NP, RN Unavailable Genoveva Goldman NP Unavailable Amina Moran RN Unavailable Amina [email or web address] [place] Encounter Details Date Type Department Care Team (Late st Contact Info) Description 07/04/2023 Procedure Pass [facility] [employer] Supervisor [place] [address] [place] [address] Social History Tobacco Use Types Packs/Day Years Used Date Smoking Tobacco: Every Day Cigarettes 0.5 15 Smokeless Tobacco: Never Comments:social etoh Alcohol Use Standard Drinks/Week Comments Yes 0 (1 standard drink = 0.6 oz pure alcohol) 10 drinks (beer, liquor) per week Education Answer Date Recorded Are you interested in more education? Not on benjie e 12/03/2022 Are you concerned about learning? Not on file 12/03/2022 No 12/03/2022 No 12/03/2022 Digital Access Answer Date Recorded No 12/26/2022 No 12/26/2022 Reliable internet access at home? Not on file 12/26/2022 Device with a working camera? Not on file Sex and Gender Information Value Date Recorded Sex Assigned at Not on file Legal Sex Male 5:22 PM EST Gender Identity Not on file Sexual Orientation Not on file documented as of this encounter Plan of Treatment Upcoming Encounters Date Type Department Care Team ([facility] st Contact Info) Description 08/11/2025 11:00 AM EST Blood Draw Laboratory Services, [facility] 450 [facility], 2nd [place] [address] Felix Hines MD [address] [place] [address] [email or web address] 08/11/2025 12:00 PM EST Office Visit [facility], [facility] 450 [facility], 11th [place] [address] Felix Hines MD [address] [place] [address] [place] [address] [email or web address] documented as of this encounter Visit Diagnoses Not on filedocumented in this encounter Care Teams Lathe Winder Relationship Specialty Start Date End Date Albert Moraes MD [address] [place] [address] PCP - General Internal Medicine 12/23/15 Jamie Gallegos MD Surgeon Urology 12/23/15 12/23/23 Felix Hines MD [address] [place] [address] [address] [place] [address] [email or web address] Primary Oncologist Medical Oncology 12/23/15 Grover Graves MD [address] [place] [address] DA 1230 [place] [address] Urology 01/10/16 Jessica Suarez NP, RN [address] [place] [address] [email or web address] Primary Infusion Nurse 07/27/17 12/23/23 Genoveva Goldman NP [address] [place] [address],[address]. [address] [place] [address] [email or web address] Oncology 12/03/17 Amina Moran RN [address] [place] [address]. [place] [address] [email or web address] Primary Infusion Nurse 12/25/23 documented as of this encounter Additional Source Comments The information contained in this document represents components of the legal health record. It is not the complete legal health record.[facility]
--- OUTSIDE RECORDS SUMMARY | 2025-07-23 09:45 | XMS_ITS | Encounter Summary ---
Author Organization [facility] Address [address] [place] [address] [place] [address] Phone Care Team Providers Care Assistant Credit Manager Name Role Phone Albert Moraes MD Primary Care Provider [phone] Jamie Gallegos MD Unavailable Letty galaviz Self-Referred, Patient Unavailable Unavailab Felix Castillo MD Unavailable Grover Graves MD Unavailable Jessica Suarez NP, RN Unavailable Genoveva Goldman NP Unavailable Amina Moran RN Unavailable Amina [email or web address] [place] Encounter Details Date Type Department Care Team (Late st Contact Info) Description 10/26/2017 Procedure Pass [facility] MR Imaging, [place] [address] [place] [address] Social History Tobacco Use Types Packs/Day Years [...] 11:00 AM EST Blood Draw Laboratory Services, [facility] [address] [facility], 2nd Floor [place], [place] Felix Hines MD [address] [place] [address] 1230 DA 1230 [place] [address] [email or web address] 08/11/2025 12:00 PM EST Office Visit [facility], [address], [address]th [place] [address] Felix Hines MD [address] [place] [address] [email or web address] documented as of this encounter Visit Diagnoses Not on filedocumented in this encounter Care Teams Assistant Credit Manager Relationship Specialty Start Date End Date Albert Moraes MD [facility] [address] PCP - General Internal Medicine 12/23/15 Jamie Gallegos MD Surgeon Urology 12/23/15 12/23/23 Self-Referred, Patient Referring Physician 12/23/1506/24 Felix Hines MD [address] [place] [address] [email or web address] Primary Oncologist Medical Oncology 12/23/15 Grover Graves MD [address] [place] [address] [address] Urology 01/10/16 Jessica Suarez, GERI, RN [address] [place] [address] [email or web address] Primary Infusion Nurse 07/27/17 12/23/23 Genoveva Goldman NP [address] [place] [address],[address]. [address] [place] [address] [email or web address] Oncology 12/03/17 Amina Moran RN [address] [place] [address]. [place] [address] [email or web address] Primary Infusion Nurse 12/25/23 documented as of this encounter Additional Source Comments The information contained in this document represents components of the legal health record. It is not the complete legal health record.[facility]
--- OUTSIDE RECORDS SUMMARY | 2025-07-23 09:46 | XMS_ITS | Clinical Summary ---
Author Organization [facility] [employer] Address [address] [facility] [address] Phone Care Team Providers Care Inspector Material Disposition Name Role Phone Albert Moraes MD Primary Care Provider [phone] Allergies Active Allergy Reactions Criticality Noted Date Comments Ciprofloxacin Rash 06/09/2021 Sulfamethoxazole-Trimethoprim 2020 Medications cyclobenzaprine (FLEXERIL) 10 mg tablet Take 10 [...] metoprolol succinate (TOPROL-XL) 50 mg 24 hr tabletIndication s:Atheroscleroti c heart disease of [place] coronary artery without angina pectoris TAKE 1 TABLET BY MOUTH EVERY DAY 90 tablet 1 05/18/2025 Active lisinopriL (PRINIVIL,ZESTRI L) 10 mg tabletIndication s:Hypertension, unspecified type,Coronary artery disease involving [place] coronary artery of [place] heart without angina pectoris Take 1 tablet (10 mg total) by mouth 1 (one) time each day. Active atorvastatin (LIPITOR) 40 mg tabletIndication s:Coronary artery disease involving [place] coronary artery of [place] heart without angina pectoris,Hyperch olesterolemia Take 1 tablet (40 mg total) by mouth at bedtime. Active aspirin 81 mg EC tabletIndication s:Coronary artery disease involving [place] coronary artery of [place] heart without angina pectoris Take 1 tablet (81 mg total) by mouth every other day. 90 tablet 1 06/16/2025 Active Hospital, Clinic, or Other Facility Administered Medication Ordered Dose Route Frequency Start Date End Date Status TC-99M tetrofosmin P radio-isotope injection 10.7 millicurie 10.7 millicurie IV Once in imaging 06/25/2025 06/25/2025 Ende d TC-99M tetrofosmin P radio-isotope injection 30.7 millicurie 30.7 millicurie IV Once in imaging 06/25/2025 06/25/2025 Ende d Active Problems Problem Noted Date Diagnosed Date S/P AVR 06/26/2025 Overview (06/26/2025): October 2021 - critical symptomatic aortic stenosis status post aortic valve replacement utilizing a 25 mm Inspira's pericardial bioprosthesis with 2V CABG April 2023 - echocardiogram showed preserved LV systolic function, mild LVH, mild RV dysfunction, well functioning bioprosthetic aortic valve, mild mitral regurgitation and mild ascending aortic dilatation 4.3cm 04/07/25 TRANSTHORACIC ECHOCARDIOGRAM (TTE) COMPLETE (CONTRAST/BUBBLE/3D PRN) 04/07/2025 04/07/2025 Interpretation Summary Left ventricle cavity size is normal. There is mild hypertrophy. Systolic function is hyperdynamic with an ejection fraction over 70%. There are no regional LV wall motion abnormalities S/p AVR, the valve is functioning normally Ascending aorta dilatation 4.5 cm Compared to the prior study from 2022, the ascending aorta is nominally larger per report although cannot compare directly Signed by: Abhishek Funes MD on 04/07/2025 3:40 PM Assessment & Plan (06/26/2025 12:47 PM EST): Working well on by last echocardiogram in April 2025 and also on exam today. Continue to monitor by echocardiogram as per ACC standards and as clinically indicated. CAD (coronary artery disease) 11/18/2021 Overview (06/26/2025): October 2021 - severe [place] right coronary artery disease status post two-vessel coronary artery bypass grafting with SVG to PDA and SVG to PL branch with SAVR Assessment & Plan (06/26/2025 12:47 PM EST): Successful two vessel CABG in October 2021. Echocardiogram from 2024 showed preserved LV systolic function with no RWMAs. No clear cut anginal symptoms, but he has had chest pain with occasionally elevated blood pressure. I will update a treadmill Nuclear stress test given the lack of clear anginal symptoms prior to his CABG. Continue with aspirin, atorvastatin, lisinopril, and metoprolol. We discussed risk reduction through lifestyle choices including healthy diet, routine exercise and weight management. Orders: ECG 12 lead Exercise nuclear stress test with myocardial perfusion; Future aspirin 81 mg EC tablet; Take 1 tablet (81 mg total) by mouth every other day. Abnormal stress test 06/10/2021 Hypercholesterolemia 06/09/2021 Assessment & Plan (06/26/2025 12:47 PM EST): January 2025 - LDL 129. HDL 54. Consider doubling atorvastatin. Orders: Exercise nuclear stress test with myocardial perfusion; Future Hypertension 06/09/2021 Assessment & Plan (06/26/2025 12:47 PM EST): Borderline elevated. Continue with lisinopril and metoprolol. Monitor twice daily for two weeks. Will also assess during stress test. Orders: ECG 12 lead Exercise nuclear stress test with myocardial perfusion; Future Encounters Date Type Department Care Team Description 06/26/2025 Telephone [facility] Cardiology [facility] [address] [facility] [address] [place] [address] Rahul Johnson NP 06/25/2025 7:30 AM EST Ancillary Procedure [facility] Cardiology [facility] [address] [place] [phone] Hypertension, unspecified type; Coronary artery disease involving [place] coronary artery of [place] heart, unspecified whether angina present; Hypercholesterolemia 06/16/2025 10:40 AM EST Office Visit [facility] Cardiology [facility] [address] [place] [address] Rahul Johnson NP Coronary artery disease involving [place] coronary artery of [place] heart without angina pectoris (Primary Dx); Hypertension, unspecified type; Hypercholesterolemia ; S/P AVR 05/11/2025 Telephone [facility] [address] [place] [address] Abhishek Funes MD from Last 3 Months Surgical History Surgery Date Site/Laterality Comments COLONOSCOPY [...] Date Smoking Tobacco: Former Smokeless Tobacco: Never Tobacco Cessation:Counseling Given: Not Answered Comments:Occassional cigar Alcohol Use Standard Drinks/Week Comments Yes 0 (1 standard drink = 0.6 oz pure alcohol) has cut back to 4 drinks per wk Sex and Gender Information Value Date Recorded Sex Assigned at Male 11/25/2024 7:44 PM EDT Legal Sex Male 3:15 PM EST Gender Identity Male 11/25/2024 7:44 PM EDT Sexual Orientation Straight 11/25/2024 7: 44 PM EDT Last Filed Vital Signs Vital Sign Reading Time Taken Comments Blood Pressure 129/77 06/25/2025 7:53 AM EST Pulse 71 06/16/2025 10:35 AM EST Temperature - - Respiratory Rate - - Oxygen Saturation 99% 06/16/2025 10:35 AM EST Inhaled Oxygen Concentration - - Weight 88 kg (194 lb) 06/25/2025 7:33 AM EST Height 185.4 cm (6' 1 ) 06/25/2025 7:33 AM EST Body Mass Index 25.6 06/25/2025 7:33 AM EST Plan of Treatment Health Maintenance Due Date Last Done Comments Colorectal Cancer Screening: Colonoscopy 1955 Pneumococcal Vaccine: 50+ Years (1 of 1 - PCV) 2007 Abdominal Aortic Aneurysm (AAA) Screen 07/16/2022 Cholesterol Screening (Lipid Panel) 07/16/2022 Hepatitis C Screening 07/16/2022 Medicare Annual Wellness Visit 07/16/2022 Social Influencers of Health Screening 07/16/2022 Falls Risk Assessment 2022 Depression Screening 08/06/2024 COVID-19 Vaccine ( season) 2025 07/27/2021, 11/09/2020, 10/18/2020 Influenza Vaccine (#1) 2025 , 08/08/2023, 07/21/2022, Additional history exists Hypertension/CHF/CAD Annual BMP Blood Test 12/08/2025 12/08/2024, 08/19/2024, 04/22/2024, Additional history exists RSV Immunization Adult Patients (1 - 1-dose 75+ series) 2032 DTaP,Tdap,and Td Vaccines (4 - Td or Tdap) 03/27/2033 03/27/2023, 06/09/2013, 10/24/2002 Zoster Vaccines Completed 10/07/2022, 07/21/2022 HIB Vaccines Aged Out No longer eligi [...] to complete this topic RSV Immunization Patients Under 20 months Aged Out No longer eligible based on patient's age to complete this topic Varicella Vaccines Aged Out No longer eligible based on patient's age to complete this topic Procedures Procedure Name Priority Date/Time Associated Diagnosis Comments NM EXERCISE STRESS TEST W/ MYOCARDIAL PERFUSION Routine 06/25/2025 10:22 AM EST Hypertension, unspecified type Coronary artery disease involving [place] coronary artery of [place] heart, unspecified whether angina present Hypercholesterolemia ECG 12-LEAD Routine 06/16/2025 10:40 AM EST Hypertension, unspecified type Coronary artery disease involving [place] coronary artery of [place] heart without angina pectoris from Last 3 Months Results * NM EXERCISE STRESS TEST W/ MYOCARDIAL PERFUSION (06/25/2025 10:22 AM EST) Exercise/injec tion duration (min) 8 CV PACS STRESS Exercise/injec tion duration (sec) 21 CV PACS STRESS Peak SBP 160 mmHg CV PACS STRESS Peak DBP 86 mmHg CV PACS STRESS Peak HR 129 bpm CV PACS STRESS Baseline HR 67 bpm CV PACS STRESS Baseline SBP 129 mmHg CV PACS STRESS Baseline DBP 77 mmHg CV PACS STRESS Estimated workload 10.1 METS CV PACS STRESS Percent HR 84 % CV PACS STRESS Rate Pressure Product 20,640.0 mmHg*bpm CV PACS STRESS Target HR 130 bpm CV PACS STRESS Angina Index 0 CV PACS STRESS Max HR Percent 84 % CV PA CS STRESS TID 0.84 CV PACS STRESS Nuc Stress EF 77 % CV PAC S STRESS Nuc Rest EF 71 % CV PACS STRESS BSA 2.13 m2 CV PACS STRESS Anatomical Region Laterality Modality Nuclear Medicine 06/25/2025 8:30 AM EST 06/25/2025 9:04 AM EST Narrative 06/25/2025 6:10 PM EST LV perfusion is normal. No fixed or reversible defects after attenuation correction. Stress ejection fraction is 77%. Normal wall motion and thickening. Stress ECG was normal. Exercise stress test was performed. Patient reported no symptoms during the stress test. Exercise capacity was above average. Normal blood pressure response. Stress Findings A Vipul protocol stress test was performed. Overall, the patient's exercise capacity was above average. Total stress time was 8 min and 21 sec. The patient experienced no angina during the test. The test was stopped because the patient experienced leg fatigue. Blood pressure demonstrated a normal response. Heart rate demonstrated a normal response. The patient reported no symptoms during the stress test. ECG 69-year-old male with a history of aortic stenosis and coronary artery disease status post aortic valve replacement and CABG with SVG to PDA and SVG to PL branch in October 2021, hypertension, hyperlipidemia, tobacco use who presents today for stress testing. He took his metoprolol and amlodipine this morning. The ECG shows normal sinus rhythm. There were no arrhythmias during stress. There is no significant ST abnormalities during stress. There were no arrhythmias during recovery. The result of the stress ECG was negative for ischemia. Nuclear Study Quality Study technique: MPI, SPECT, multi, rest and stress, 1 day. Overall image quality is good. CT attenuation correction was utilized. Diaphragmatic attenuation artifact is present. No radiopharmaceutical dose was extravasated. Perfusion Defect Conclusion There is no evidence of transient ischemic dilation (TID). Stress Function Comments Stress ejection fraction is 77%. Normal wall motion and thickening. Rest Function Comments Resting ejection fraction was 71%. CT Findings CT performed for attenuation not for diagnosis. Heavy LAD calcification seen Perfusion Comments LV perfusion is normal. No fixed or reversible defects after attenuation correction. Rahul Johnson NP CV STRESS PROCEDURES Final Result * ECG 12 lead (06/16/2025 10:40 AM EST) Ventricular Rate ECG 71 BPM GEMUSE Atrial Rate 71 BPM GEMUSE P-R Interval 196 ms GEMUSE QRS Duration 108 ms GEMUSE Q-T Interval 384 ms GEMUSE QTc 417 ms GEMUSE P Wave [place] 14 degrees GEMUSE R [place] -40 degrees GEMUSE T [place] 56 degrees GEMUSE ECG Interpretation Normal sinus rhythm Left anterior fascicular block Moderate voltage criteria for LVH, may be normal variant Abnormal ECG When compared with ECG of 24-DEC-2008 14:35, No significant change was found Confirmed by MD GERBER, EM ([id number]) on 06/18/2025 5:07:38 PM GEMUSE 06/16/2025 10:4 0 AM EST 06/18/2025 5:07 PM EST us Rahul Johnson GENERAL II FARMWORKER ECG ORDERABLES Final Resul t GEMUSE from Last 3 Months Insurance MEDICARE [facility] Care Teams Inspector Material Disposition Relationship Specialty Start Date End Date Albert Moraes MD [address] [place] [address] PCP - General 01/15/09
--- OUTSIDE RECORDS SUMMARY | 2025-07-23 09:46 | XMS_ITS | Encounter Summary ---
Author Organization Formerly [facility] Address [address] [place] [address] [place] [address] Phone Care Team Providers Care Food Vendor Name Role Phone Albert Moraes MD Primary Care Provider [phone] Jamie Gallegos MD Unavailable Letty galaviz Self-Referred, Patient Unavailable Unavailab Felix Castillo MD Unavailable [phone] Grover Graves MD Unavailable Jessica Suarez NP, RN Unavailable Genoveva Glodman NP Unavailable Amina Moran RN Unavailable Amina _[email or web address]. DU Encounter Details Date Type Department Care Team (Late st Contact Info) Description 07/31/2017 Procedure Pass DF IMG OUTSIDE IMG 450 [place] [address] Social History Tobacco Use Types Packs/Day Years [...] 11:00 AM EST Blood Draw Laboratory Services, [facility] 450 [facility], 2nd [place] [address] Felix Hines MD [address] [place] [address] 1230 DA 1230 [place] [address] [email or web address] 08/11/2025 12:00 PM EST Office [facility], [facility] [address] [facility], 11th [place] [address] Felix Hines MD [address] [place] [address] 1230 1230 [place] [address] [email or web address] documented as of this encounter Visit Diagnoses Not on filedocumented in this encounter Care Teams Food Vendor Relationship Specialty Start Date End Date Albert Moraes MD [facility] [address] PCP - General Internal Medicine 12/23/15 Jamie Gallegos MD Surgeon Urology 12/23/15 12/23/23 Self-Referred, Patient Referring Physician 12/23/1506/24 Felix Hines MD [address] [place] [address] [place] [address] [email or web address] Primary Oncologist Medical Oncology 12/23/15 Grover Graves MD [address] [place], [place] [address]32[address] DA 1230 [place] [address] Urology 01/10/16 Jessica Suarez, GERI, RN [address] [place] [address] Jose@[email or web address] Primary Infusion Nurse 07/27/17 12/23/23 Genoveva Goldman NP [address] [place] [address],[address]th [address]. [address] [place] [address] Jenna@[facility] Oncology 12/03/17 Amina Moran RN [address] [place] [address]. [place] [address] [email or web address] Primary Infusion Nurse 12/25/23 documented as of this encounter Additional Source Comments The information contained in this document represents components of the legal health record. It is not the complete legal health record.[facility]
--- OUTSIDE RECORDS SUMMARY | 2025-07-23 09:46 | XMS_ITS | Encounter Summary ---
Author Organization [facility] Address [address] [place] [address] [place] [address] Phone Care Team Providers Care Ui Developer Name Role Phone Albert Moraes MD Primary Care Provider [phone] Jamie Gallegos MD Unavailable Letty galaviz Self-Referred, Patient Unavailable Unavailab Felix Castillo MD Unavailable [phone] Grover Graves MD Unavailable Jessica Suarez NP, RN Unavailable Genoveva Goldman NP Unavailable Amina Moran RN Unavailable Amina _[email or web address]. DU Encounter Details Date Type Department Care Team (Late st Contact Info) Description 05/29/2017 Procedure Pass DF IMG OUTSIDE IMG 450 [place] [address] Social History Tobacco Use Types Packs/Day Years [...] 11:00 AM EST Blood Draw Laboratory Services, [facility] 450 [facility], 2nd [place] [address] Felix Hines MD [address] [place] [address] 1230 DA 1230 [place] [address] [email or web address] 08/11/2025 12:00 PM EST Office [facility], [facility] 450 [facility], 11th [place] [address] Felix Hines MD [address] [place] [address] 1230 1230 [place] [address] [email or web address] documented as of this encounter Visit Diagnoses Not on filedocumented in this encounter Care Teams Ui Developer Relationship Specialty Start Date End Date Albert Moraes MD [facility] [address] PCP - General Internal Medicine 12/23/15 Jamie Gallegos MD Surgeon Urology 12/23/15 12/23/23 Self-Referred, Patient Referring Physician 12/23/1506/24 Felix Hines MD [address] [place] [address] [place] [address] [email or web address] Primary Oncologist Medical Oncology 12/23/15 Grover Graves MD [address] [place], [place] 5723[address] DA 1230 [place] [address] Urology 01/10/16 Jessica Suarez, GERI, RN [address] [place] [address] Jose@[email or web address] Primary Infusion Nurse 07/27/17 12/23/23 Genoveva Goldman NP [address] [place] [address],12th [address]. [address] [place] [address] Jenna@[facility] Oncology 12/03/17 Amina Moran RN [address] [place] [address]. [place] [address] Jules@[email or web address] Primary Infusion Nurse 12/25/23 documented as of this encounter Additional Source Comments The information contained in this document represents components of the legal health record. It is not the complete legal health record.[facility]
--- OUTSIDE RECORDS SUMMARY | 2025-07-23 09:46 | XMS_ITS | Encounter Summary ---
Author Organization [facility] Address Formerly [facility] [facility] [address] [place] [address] Phone Care Team Providers Care Java Application Developer Name Role Phone Albert Moraes MD Primary Care Provider [phone] Jamie Gallegos MD Unavailable Letty galaviz Self-Referred, Patient Unavailable Unavailab Felix Castillo MD Unavailable [phone] Grover Graves MD Unavailable [phone] Jessica Suarez NP, RN Unavailable [phone] Genoveva Goldman NP Unavailable [phone] Amina Moran RN Unavailable Amina [email or web address]@[email or web address]. DU Encounter Details Date Type Department Care Team (Latest Contact Info) Description 06/07/2017 Transcribe Orders Aylin Mann Imaging Department, [facility] [place], Imaging Wzcfw-sg-Ledv 450 [facility], Floor L1 [place] [address] Felix Hines MD [address] [place] [address] [email or web address] Blood tests prior to treatment or procedure (Primary Dx) Social History Tobacco Use Types Packs/Day Years [...] 11:00 AM EST Blood Draw Laboratory Services, [address], 2nd [place] [address] Felix Hines MD [address] [place] [address] [address] [email or web address] 08/11/2025 12:00 PM EST Office Visit [facility], [address], 11th [place] [address] Felix Hines MD [address] [place] [address] [address] [email or web address] documented as of this encounter Visit Diagnoses Diagnosis Blood tests prior to treatment or procedure- Primary Pre-procedural laboratory examination documented in this encounter Care Teams Java Application Developer Relationship Specialty [place] [address] [place] [address] PCP - General Internal Medicine 12/23/15 Jamie Gallegos MD Surgeon Urology 12/23/15 12/23/23 Self-Referred, Patient Referring Physician 12/23/1506/24 Felix Hines MD [address] [place] [address] [address] [place] [address] [email or web address] Primary Oncologist Medical Oncology 12/23/15 Grover Graves MD [address] [place] [address] DA 1230 [place] [address] Urology 01/10/16 Jessica Suarez NP, RN [address] [place] [address] Jose@[email or web address] Primary Infusion Nurse 07/27/17 12/23/23 Genoveva Goldman NP [address] [place] [address],12th Floor. [address] [place] [address] Jenna@[facility] Oncology 12/03/17 Amina Moran RN [address] [place] [address] Jules@[email or web address] Primary Infusion Nurse 12/25/23 documented as of this encounter Additional Source Comments The information contained in this document represents components of the legal health record. It is not the complete legal health record.[facility]
--- OUTSIDE RECORDS SUMMARY | 2025-07-23 09:46 | XMS_ITS | Encounter Summary ---
Author Organization [facility] Address [address] [place] [address] [place] [address] Phone Care Team Providers Care Ux Specialist Name Role Phone Albert Moraes MD Primary Care Provider [phone] Jamie Gallegos MD Unavailable Letty galaviz Self-Referred, Patient Unavailable Unavailab Felix Castillo MD Unavailable Grover Graves MD Unavailable Jessica Suarez NP, RN Unavailable [phone] Genoveva Goldman NP Unavailable Amina Moran RN Unavailable Amina _[email or web address]. DU Encounter Details Date Type Department Care Team (Late st Contact Info) Description 05/22/2018 Procedure Pass [facility] CT Imaging, Black [address] [place] [address] Social History Tobacco Use Types Packs/Day Years [...] 11:00 AM EST Blood Draw Laboratory Services, [facility] 450 [facility], 2nd Floor [place], [place] Felix Hines MD [address] [place] [address] 1230 DA 1230 [place] [address] Abdoul@[email or web address] 08/11/2025 12:00 PM EST Office Visit [facility], [address], 11th [place] [address] Felix Hines MD [address] [place] [address] [email or web address] documented as of this encounter Visit Diagnoses Not on filedocumented in this encounter Care Teams Ux Specialist Relationship Specialty Start Date End Date Albert Moraes MD [facility] [address] PCP - General Internal Medicine 12/23/15 Jamie Gallegos MD Surgeon Urology 12/23/15 12/23/23 Self-Referred, Patient Referring Physician 12/23/1506/24 Felix Hines MD [address] [place] [address] [email or web address] Primary Oncologist Medical Oncology 12/23/15 Grover Graves MD [address] [place], [place] [address] [address] [address] Urology 01/10/16 Jessica Suarez, GERI, RN [address] [place] [place] [address] Jose@[email or web address] Primary Infusion Nurse 07/27/17 12/23/23 Genoveva Goldman NP [address] [place] [address],12th [address]. [address] [place] [address] Jenna@[facility] Oncology 12/03/17 Amina Moran RN [address] [place] [address]. [place] [address] Jules@[email or web address] Primary Infusion Nurse 12/25/23 documented as of this encounter Additional Source Comments The information contained in this document represents components of the legal health record. It is not the complete legal health record.[facility]
--- OUTSIDE RECORDS SUMMARY | 2025-07-23 09:46 | XMS_ITS | Encounter Summary ---
Author Organization [facility] Address [address] [place] [address] [place] [address] Phone Care Team Providers Care Electronic Bench Technician Name Role Phone Albert Moraes MD Primary Care Provider [phone] Jamie Gallegos MD Unavailable Letty galaviz Self-Referred, Patient Unavailable Unavailab Felix Castillo MD Unavailable Grover Graves MD Unavailable Jessica Suarez NP, RN Unavailable Genoveva Goldman NP Unavailable Amina Moran RN Unavailable Aimna _[email or web address]. DU Encounter Details Date Type Department Care Team (Late st Contact Info) Description 05/31/2017 Procedure Pass [facility] Imaging Department, [facility] [place] 450 [facility], Floor L1 [place] [address] Social History Tobacco Use Types [...] 11:00 AM EST Blood Draw Laboratory Services, [address], 2nd Floor [place], [place] Felix Hines MD [address] [place] [address] 1230 DA 1230 [place] [address] [email or web address] 08/11/2025 12:00 PM EST Office [facility], [facility] 450 [facility], 11th Floor [place], [place] [phone] Felix Hines MD [address] [place] [address] 1230 DA [facility] [place] [address] [email or web address] documented as of this encounter Visit Diagnoses Not on filedocumented in this encounter Care Teams Electronic Bench Technician Relationship Specialty Start Date End Date Albert Moraes MD [address] [place] [address] PCP - General Internal Medicine 12/23/15 Jamie Gallegos MD Surgeon Urology 12/23/15 12/23/23 Self-Referred, Patient Referring Physician 12/23/1506/24 Felix Hines MD [address] [place] [address] 1230 DA 1230 [place] [address] [email or web address] Primary Oncologist Medical Oncology 12/23/15 Grover Graves MD [address] [place] [address] 1230 DA 1230 [place] [address] Urology 01/10/16 Jessica Suarez, GERI, RN [address] [place] [address] Jose@[email or web address] Primary Infusion Nurse 07/27/17 12/23/23 Genoveva Goldman NP [address] [place] [address],12th [address]. [address] [place] [address] Jenna@[facility] Oncology 12/03/17 Amina Moran RN [address] [place] [address]. [place] [address] Jules@[email or web address] Primary Infusion Nurse 12/25/23 documented as of this encounter Additional Source Comments The information contained in this document represents components of the legal health record. It is not the complete legal health record.[facility]
--- OUTSIDE RECORDS SUMMARY | 2025-07-23 09:46 | XMS_ITS | Encounter Summary ---
Author Organization [facility] Address [address] [place] [address] [place] [address] Phone Care Team Providers Care Reconsignment Clerk Name Role Phone Albert Moraes MD Primary Care Provider [phone] Jamie Gallegos MD Unavailable Letty galaviz Self-Referred, Patient Unavailable Unavailab Felix Castillo MD Unavailable Grover Gravse MD Unavailable Jessica Suarez NP, RN Unavailable Genoveva Goldman NP Unavailable [phone] Amina Moran RN Unavailable Amina _[email or web address]. DU Encounter Details Date Type Department Care Team (Late st Contact Info) Description 05/22/2018 Procedure Pass [facility] MR Imaging, Black [address] [place] [address] Social History Tobacco Use Types Packs/Day Years [...] 11:00 AM EST Blood Draw Laboratory Services, [facility] [address] [facility], 2nd Floor [place], [place] Felix Hines MD [address] [place] [address] 1230 DA 1230 [place] [address] [email or web address] 08/11/2025 12:00 PM EST Office Visit [facility], [address], 11th [place] [address] Felix Hines MD [address] [place] [address] [email or web address] documented as of this encounter Visit Diagnoses Not on filedocumented in this encounter Care Teams Reconsignment Clerk Relationship Specialty Start Date End Date Albert Moraes MD [facility] [address] PCP - General Internal Medicine 12/23/15 Jamie Gallegos MD Surgeon Urology 12/23/15 12/23/23 Self-Referred, Patient Referring Physician 12/23/1506/24 Felix Hines MD [address] [place] [address] [email or web address] Primary Oncologist Medical Oncology 12/23/15 Grover Graves MD [address] [place], [place] [address] [address] [address] Urology 01/10/16 Jessica Suarez, GERI, RN [address] [place] [address] Jose@[email or web address] Primary Infusion Nurse 07/27/17 12/23/23 Genoveva Goldman NP [address] [place] [address],12th [address]. [address] [place] [address] Jenna@[email or web address] Oncology 12/03/17 Amina Moran RN [address] [place] [address]. [place] [address] Jules@[facility] Primary Infusion Nurse 12/25/23 documented as of this encounter Additional Source Comments The information contained in this document represents components of the legal health record. It is not the complete legal health record.[facility]
--- OUTSIDE RECORDS SUMMARY | 2025-07-23 09:46 | XMS_ITS | Encounter Summary ---
Author Organization [facility] Address [address] [place] [address] [place] [address] Phone Care Team Providers Care Band Builder Name Role Phone Albert Moraes MD Primary Care Provider [phone] Jamie Gallegos MD Unavailable Felix Sparrow MD Unavailable Grover Graves MD Unavailable Jessica Suarez NP, RN Unavailable [phone] Genoveva Goldman NP Unavailable Amina Moran RN Unavailable Amina [email or web address]. DU Encounter Details Date Type Department Care Team (Late st Contact Info) Description 05/30/2021 Procedure Pass [facility] Imaging Department, [facility] [place] [place] 450 [facility], Floor [address]1 [place] [address] Social History Tobacco Use Types Packs/Day Years [...] 11:00 AM EST Blood Draw Laboratory Services, [facility] 450 [facility], 2nd Floor [place], [place] Felix Hines MD 44 [facility] 1230 DA 1230 [place] [address] [email or web address] 08/11/2025 12:00 PM EST Office [facility], [facility] 450 [facility], 11th Floor [place], [place] [phone] Felix Hines MD [address] [place] [address] [email or web address] documented as of this encounter Visit Diagnoses Not on filedocumented in this encounter Care Teams Band Builder Relationship Specialty Start Date End Date Albert Moraes MD [address] [place] [address] PCP - General Internal Medicine 12/23/15 Jamie Gallegos MD Surgeon Urology 12/23/15 12/23/23 Felix Hines MD [address] [place] [address] [email or web address] Primary Oncologist Medical Oncology 12/23/15 Grover Graves MD [address] [place] [address] Urology 01/10/16 Jessica Suarez, GERI, RN [address] [place] [address] Jose@[email or web address] Primary Infusion Nurse 07/27/17 12/23/23 Genoveva Goldman NP [address] [place] [address],12th Floor. [address] [place] [address] Jenna@[facility] Oncology 12/03/17 Amina Moran RN [address] [place] [address]. [place] [address] [email or web address] Primary Infusion Nurse 12/25/23 documented as of this encounter Additional Source Comments The information contained in this document represents components of the legal health record. It is not the complete legal health record.[facility]
--- OUTSIDE RECORDS SUMMARY | 2025-07-23 09:46 | XMS_ITS | Encounter Summary ---
Author Organization [facility] Address [facility]ly [facility] [employer] [facility] [address] [place] [address] Phone Care Team Providers Care Fish Header Name Role Phone Albert Moraes MD Primary Care Provider [phone] Jamie Gallegos MD Unavailable Felix Sparrow MD Unavailable [phone] Grover Graves MD Unavailable Jessica Suarez NP, RN Unavailable Genoveva Goldman NP Unavailable Amina Moran RN Unavailable Amina [email or web address]. DU Encounter Details Date Type Department Care Team (Late st Contact Info) Description 07/26/2020 Procedure Pass [facility] CT Imaging, Black [address] [place] [address] Social History Tobacco Use Types Packs/Day Years [...] 11:00 AM EST Blood Draw Laboratory Services, [facility] 450 [facility], 2nd [place] [address] Felix Hines MD 44 [facility] 1230 DA 1230 [place] [address] [email or web address] 08/11/2025 12:00 PM EST Office [facility], [facility] 450 [facility], 11th [place] [address] Felix Hines MD [address] [place] [address] Abdoul@[email or web address] documented as of this encounter Visit Diagnoses Not on filedocumented in this encounter Care Teams Fish Header Relationship Specialty [place] [address] [place] [address] PCP - General Internal Medicine 12/23/15 Jamie Gallegos MD Surgeon Urology 12/23/15 12/23/23 Felix Hines MD [address] [place] [address] [email or web address] Primary Oncologist Medical Oncology 12/23/15 Grover Graves MD [address] [place] [address] 1230 DA 1230 [place] [address] Urology 01/10/16 Jessica Suarez, PERSONNEL COORDINATOR, RN [address] [place] [address] Jose@[email or web address] Primary Infusion Nurse 07/27/17 12/23/23 Genoveva Goldman NP 450 [facility],12th Floor. [address] [place] [address] Jenna@[facility] Oncology 12/03/17 Amina Moran RN [address] [place] [address]. [place] [address] Jules@[email or web address] Primary Infusion Nurse 12/25/23 documented as of this encounter Additional Source Comments The information contained in this document represents components of the legal health record. It is not the complete legal health record.[facility]
--- OUTSIDE RECORDS SUMMARY | 2025-07-23 09:46 | XMS_ITS | Encounter Summary ---
Author Organization [facility] Address [address] [place] [address] [place] [address] Phone Care Team Providers Care Ash Collector Name Role Phone Albert Moraes MD Primary Care Provider [phone] Jamie Gallegos MD Unavailable Letty galaviz Self-Referred, Patient Unavailable Unavailab Felix Castillo MD Unavailable Grover Graves MD Unavailable Jessica Suarez NP, RN Unavailable Genoveva Goldman NP Unavailable Amina Moran RN Unavailable Amina [email or web address] Encounter Details Date Type Department Care Team (Late st Contact Info) Description 09/10/2017 Procedure Pass [facility] MR Imaging, [place] [address] [place] [address] Social History Tobacco Use Types Packs/Day Years [...] 11:00 AM EST Blood Draw Laboratory Services, [facility] [address] [facility], 2nd Floor [place], [place] Felix Hines MD [address] [place] [address] 1230 DA 1230 [place] [address] [email or web address] 08/11/2025 12:00 PM EST Office [facility], [address], 11th [place] [address] Felix Hines MD [address] [place] [address] [email or web address] documented as of this encounter Visit Diagnoses Not on filedocumented in this encounter Care Teams Ash Collector Relationship Specialty Start Date End Date Albert Moraes MD [facility] [address] PCP - General Internal Medicine 12/23/15 Jamie Gallegos MD Surgeon Urology 12/23/15 12/23/23 Self-Referred, Patient Referring Physician 12/23/1506/24 Felix Hines MD [address] [place] [address] [email or web address] Primary Oncologist Medical Oncology 12/23/15 Grover Graves MD [address] [place], [place] [address] [address] [address] Urology 01/10/16 Jessica Suarez, GERI, RN [address] [place] [address] [email or web address] Primary Infusion Nurse 07/27/17 12/23/23 Genoveva Goldman NP [address] [place] [address],[address] [place] [address] [email or web address] Oncology 12/03/17 Amina Moran RN [address] [place] [address]. [place] [address] [email or web address] Primary Infusion Nurse 12/25/23 documented as of this encounter Additional Source Comments The information contained in this document represents components of the legal health record. It is not the complete legal health record.[facility]
--- OUTSIDE RECORDS SUMMARY | 2025-07-23 09:46 | XMS_ITS ---
Author Organization [facility] Address [address] [place] [address] Phone Care Team Providers Care Cane Piler Name Role Phone Albert Moraes MD Primary Care Provider [phone] Felix Hines MD Unavailable [phone] Grover Graves MD Unavailable Genoveva Goldman NP Unavailable Amina Moran RN Unavailable [email or web address] [email or web address] Active Problems Problem Noted Date Diagnosed Date Prostate cancer 01/10/2016 Current Treatment and Therapy Plans No current plan information found. Past Treatment and Therapy Plans Oncology Therapy Plan Plan Name Start Date Discontinue Date Treatment Medications Discontinue Reason Plan Provider LEUPROLIDE ACETATE 3 MONTH (LUPRON DEPOT 3 MONTH) 12/25/2023 12/12/2024 leuprolide (LUPRON) a. Therapy Complete Felix Hines MD TREATMENT PLAN Plan Name Start Date Discontinue Date Treatment Medications Discontinue Reason Plan Provider Cycles ABIRATERONE 08/28/2023 12/09/2024 abiraterone (ZYTIGA) a. Therapy Felix Covarrubias MD 1 of 4 cycles started
--- OUTSIDE RECORDS SUMMARY | 2025-07-23 09:46 | XMS_ITS | Clinical Summary ---
Author Organization [facility] Address [address] [place] [address] Phone Care Team Providers Care Sewage Disposal Engineer Name Role Phone Albert Moraes MD Primary Care Provider [phone] Felix Hines MD Unavailable Grover Graves MD Unavailable Genoveva Goldman NP Unavailable [phone] Amina Moran RN Unavailable [email or web address] Allergies Active Allergy Reactions Criticality Noted Date Comments Bactrim (Sulfamethoxazole-Trimethoprim) Nausea And Vomiting Medium 01/10/2016 Ciprofloxacin Rash Medium 01/10/2016 Medications omeprazole (PRILOSEC) 20 MG capsule Take 20 mg by mouth daily. Active metoprolol succinate (TOPROL-XL) 50 MG 24 hr tablet Take 50 mg by mouth daily. Active atorvastatin (LIPITOR) 20 MG tablet Take 20 mg by mouth daily. Active CALCIUM-VITAMIN D3 ORAL Take 2 tablets by mouth daily. Active lisinopril (PRINIVIL,ZESTR IL) 10 MG tablet Take 1 tablet (10 mg total) by mouth daily. 06/09/2025 Active Active Problems Problem Noted Date Diagnosed Date Prostate cancer 01/10/2016 Encounters Date Type Department Care Team Description 06/09/2025 10:00 AM EST Telemedicine - audio only [facility] [place] [facility], [facility] [address] [facility], 11th [place] [address] Stanley Serrano, Felix Lerner MD Prostate cancer (Primary Dx) 05/07/2025 Orders Only [facility] Administrative [address] [place] [address] Michael Rausch MD, PhD from Last 3 Months Family History Medical History Relation Comments Benign prostatic hyperplasia Father Dementia Mother Prostate cancer Neg Hx Relation Status Comments Father Mother Social History Tobacco Use Types Packs/Day Years [...] on file Sexual Orientation Not on file Last Filed Vital Signs Vital Sign Reading Time Taken Comments Blood Pressure 136/81 12/09/2024 11:01 AM EDT Pulse 68 12/09/2024 11:01 AM EDT Temperature 36.5 C (97.7 F) 12/09/2024 11:00 AM EDT Respiratory Rate 16 12/09/2024 10:5 9 AM EDT Oxygen Saturation 99% 12/09/2024 11: 01 AM EDT Inhaled Oxygen Concentration - - Weight 88.8 kg (195 lb 12.3 oz) 025 10:59 AM EDT Height 183.9 cm (6' 0.4 ) 08/19/2024 11 :30 AM EST Body Mass Index 26.26 08/19/2024 11:30 AM EST Plan of Treatment Upcoming Encounters Date Type Department Care Team (Late st Contact Info) Description 08/11/2025 11:00 AM EST Blood Draw Laboratory Services, [facility] [address] [facility], 2nd [place] [address] Felix Hines MD [address] [place] [address] [email or web address] 08/11/2025 12:00 PM EST Office [facility], [facility] [address] [facility], 11th [place] [address] Felix Hines MD [address] [place] [address] [email or web address] Health Maintenance Due Date Last Done Comments LIPID PANEL 1957 DEPRESSION SCREENING 1969 HEPATITIS C SCREENING 1975 PNEUMOCOCCAL VACCINES (50+ years) (1 of 2 - PCV) 1976 COLOGUARD 2002 COLONOSCOPY 2002 COLORECTAL CANCER SCREENING 2002 FIT TEST 2002 FOBT 2002 SIGMOIDOSCOPY 2002 VIRTUAL COLONOSCOPY 2002 ABDOMINAL AORTIC ANEURYSM (AAA) SCREENING 2022 06/20/2021 INFLUENZA VACCINE (#1) 2025 , 08/08/2023, 07/21/2022, Additional history exists COVID-19 VACCINE ( season) 2025 07/27/2021, 11/09/2020, 10/18/2020 CREATININE LEVEL 12/08/2025 12/08/2024, , 04/22/2024, Additional history exists POTASSIUM LEVEL 12/08/2025 12/08/2024, 08/06, 04/22/2024, Additional history exists SMOKING Hx and SMOKELESS TOBACCO SCREENING 12/09/2025 12/09/2024 SCREENING FOR DIABETES 12/09/2027 12/08/2024 RSV VACCINE (1 - 1-dose 75+ series) 2032 Adult Td,Tdap Booster 03/27/2033 03/27/2023 , 06/09/2013, 10/24/2002 ZOSTER VACCINES Completed 10/07/2022, 07/21/2022 HEPATITIS A VACCINES Aged Out No long er eligible based on patient's age to complete this topic HIB VACCINES Aged Out No longer eligi ble based on patient's age to complete this topic MENINGOCOCCAL VACCINES (ACWY) Aged Out No longer eligible based on patient's age to complete this topic MENINGOCOCCAL VACCINES (B) Aged Out N o longer eligible based on patient's age to complete this topic Medical Devices Implanted Type Area Ceramic Design Engineer Device Identifier Shelf Expiration Date Model / Serial / Lot Prosthetic Valve Prosthetic Valve Aorta [employer] [id number] / [id number] / Description:Copy of Card sca nned into [employer] 07/24/23 Static Magnetic Field 1.5T or 3 T only Max spatial gradient field of 3,000 gauss/cm (3T/m) or less Max MR system- repirted whole body averaged specific absorption rate (MARK) of 2.0 w/kg in normal operating mode for 15 minutes of MR scanning per sequence Procedures Procedure Name Priority Date/Time Associated Diagnosis Comments OUTSIDE LAB 05/25/2025 COMPREHENSIVE METABOLIC PANEL (CMP) Routine 12/08/2024 12:16 [address]T Prostate cancer CT ABDOMEN/PELVIS WITH CONTRAST Routine 06/20/2021 3:24 PM EST Prostate cancer from Last 3 Months or Most Recently Relevant to Health Maintenance Results * Outside Lab (05/25/2025) us Scanning Interface Provider LAB BLOOD BKR ORDERA BLES Final Result * (ABNORMAL) Comprehensive metabolic panel (12/08/2024 12:16 PM EDT) SODIUM 141 136 - 145 mmol/L [facility] LIC# [id number] POTASSIUM 4.1 3.4 - 5.1 mmol/L [facility] LIC# [id number] CHLORIDE 106 98 - 107 mmol/L [facility] LIC# [id number] CO2 23 22 - 31 mmol/L [facility] LIC# [id number] BUN 17 6 - 23 mg/dL [facility] LIC# [id number] CREATININE 0.82 0.50 - 1.20 mg/dL [facility] LIC# [id number] GLUCOSE 108(H) 70 - 100 mg/dL [facility] LIC# [id number] ALBUMIN 4.4 3.5 - 5.2 g/dL [facility] LIC# [id number] TOTAL PROTEIN 6.8 6.4 - 8.3 g/dL [facility] LIC# [id number] CALCIUM 9.3 8.8 - 10.7 mg/dL [facility] LIC# [id number] ALKALINE PHOSPHATASE 78 40 - 129 U/L [facility] LIC# [id number] TOTAL BILIRUBIN 0.5 0.2 - 1.2 mg/dL [facility] LIC# [id number] AST 19 <41 U/L [facility] LIC# [id number] ALT 27 <42 U/L [facility] LIC# [id number] GLOBULIN 2.4 2.3 - 4.2 g/dL [facility] LIC# [id number] EGFR 96 >59 mL/min/1.7 3m2 [facility] LIC# [id number] Comment:Estimated glomerular filtration rate calculated using the CKD-EPI refit equation. ANION GAP 12 7 - 17 mmol/L [facility] LIC# [id number] Blood 12/08/2024 12:1 6 PM EDT 12/08/2024 12:59 PM EDT us Felix Hines MD LAB BLOOD BKR ORDERABLES Fi nal Result [facility] LIC# [id number] [address] [place] [address] * CT ABDOMEN/PELVIS WITH CONTRAST (06/20/2021 3:24 PM EST) Anatomical Region Laterality Modality Abdomen, Pelvis Computed Tomogra phy Other 06/20/2021 4:29 PM EST Impressions 06/20/2021 4:39 PM EST 1. No new sites of metastatic disease within the abdomen and pelvis. 2. Unchanged sclerotic foci in the pelvic bones. Same-day nuclear medicine bone scan is reported separately. The Radiologist Diagnostic Certainty Scale is a guide that conveys to patients and providers a radiologist's subjective diagnostic confidence: Most likely means very high probability Likely means high probability May represent means intermediate probability Unlikely means low probability Very unlikely means very low probability You can find out more about our efforts to improve the clarity of radiology reports for our patients and providers by visiting [email or web address]. Narrative 06/20/2021 4:[address] ABDOMEN/PELVIS WITH CONTRAST TECHNIQUE: Multidetector-row CT of the abdomen and pelvis was performed after administration of intravenous contrast using tailored dose modulation techniques. Images were reconstructed in the axial, coronal, and sagittal planes. COMPARISON: CT PELVIS WITH CONTRAST ; CT OUTSIDE ABDOMEN PELVIS NO INTERPRETATION FINDINGS: Lower Chest: Partially visualized dense aortic annulus calcifications and coronary artery calcifications. Liver: Similar scattered small hypodense liver lesions, most likely benign cysts. Biliary: Normal. No biliary ductal dilatation. Spleen: Normal. No splenomegaly or focal lesions. Pancreas: Normal. No masses or ductal dilatation. Adrenal Glands: Normal. No nodules. Kidneys/Ureters: Unchanged 1.2 cm hypodense lesion arising from the anterior interpolar kidney, most likely a benign hemorrhagic/proteinaceous cyst, given stability over 5 years (2:35). Bowel: Sigmoid diverticulosis. Peritoneum/Retroperitoneum: Normal. No masses, pneumoperitoneum, or fluid. Lymph Nodes: Normal. No lymphadenopathy. Pelvic Organs/Bladder: Status post prostatectomy. Decompressed urinary bladder. Vessels: Replaced or accessory left hepatic artery arising from the left gastric artery, a normal variant. Moderate to severe atherosclerotic calcification of the abdominal aorta and branch vessels. Bones/Soft Tissues: Unchanged sclerotic lesion along the right inferior sacrum (601:84) and right medial acetabulum. Small fat-containing umbilical and left inguinal hernias. Unchanged trabeculated lucent lesion in the T9 vertebral body, most likely a benign hemangioma (602:67). Procedure Note Lizet Michael MD - 06/20/2021 CT ABDOMEN/PELVIS WITH CONTRAST TECHNIQUE: Multidetector-row CT of the abdomen and pelvis was performedafter administration of intravenous contrast using tailored dosemodulation techniques. Images were reconstructed in the axial, coronal,and sagittal planes. COMPARISON: CT PELVIS WITH CONTRAST ; CT OUTSIDE ABDOMEN PELVISNO INTERPRETATION FINDINGS: Lower Chest: Partially visualized dense aortic annulus calcifications andcoronary artery calcifications. Liver: Similar scattered small hypodense liver lesions, most likely benigncysts. Biliary: Normal. No biliary ductal dilatation. Spleen: Normal. No splenomegaly or focal lesions. Pancreas: Normal. No masses or ductal dilatation. Adrenal Glands: Normal. No nodules. Kidneys/Ureters: Unchanged 1.2 cm hypodense lesion arising from theanterior interpolar kidney, most likely a benign hemorrhagic/proteinaceouscyst, given stability over 5 years (2:35). Bowel: Sigmoid diverticulosis. Peritoneum/Retroperitoneum: Normal. No masses, pneumoperitoneum, orfluid. Lymph Nodes: Normal. No lymphadenopathy. Pelvic Organs/Bladder: Status post prostatectomy. Decompressed urinarybladder. Vessels: Replaced or accessory left hepatic artery arising from the leftgastric artery, a normal variant. Moderate to severe atheroscleroticcalcification of the abdominal aorta and branch vessels. Bones/Soft Tissues: Unchanged sclerotic lesion along the right inferiorsacrum (601:84) and right medial acetabulum. Small fat-containingumbilical and left inguinal hernias. Unchanged trabeculated lucent lesionin the T9 vertebral body, most likely a benign hemangioma (602:67). IMPRESSION: 1. No new sites of metastatic disease within the abdomen and pelvis. 2. Unchanged sclerotic foci in the pelvic bones. Same-day nuclearmedicine bone scan is reported separately. The Radiologist Diagnostic Certainty Scale is a guide that conveys topatients and providers a radiologist's subjective diagnostic confidence: Most likely means very high probability Likely means high probability May represent means intermediate probability Unlikely means low probability Very unlikely means very low probability You can find out more about our efforts to improve the clarity ofradiology reports for our patients and providers by [email or web address] 1. Felix Hines MD IMG CT ABD/PELVIS Final Res ult from Last 3 Months or Most Recently Relevant to Health Maintenance Insurance MEDICARE PART A & B [facility] MEDICARE SUPPLEMENT MEDICARE PART A & B [facility] MEDICARE SUPPLEMENT [facility] [place] [place] Address: [facility] [employer] [address] [place] [phone] MEDICARE PART A & B [facility] MEDICARE SUPPLEMENT MEDICARE PART A & [place] [address] MEDICARE SUPPLEMENT MEDICARE PART A & B Member Subscriber Plan / Payer (Ef fective 2024-Present) Name:Milad Tello Member ID:[id number] Relation to Subscriber:Self Name:Milad Tello Subscriber ID:[id number] Payer ID:[id number] Group ID:Not on file Type:Medicare Address: [employer] [address] [place] [id number] [place] [address] MEDICARE SUPPLEMENT MEDICARE PART A & B [facility] MEDICARE SUPPLEMENT Care Teams Sewage Disposal Engineer Relationship Specialty Start Date End Date Albert Moraes MD [address] [place] [address] PCP - General Internal Medicine 12/23/15 Felix Hines MD [address] [facility] 1230 DA [address] [place] [address] [email or web address] Primary Oncologist Medical Oncology 12/23/15 Grover Graves MD [address] [facility] 1230 DA 1230 [place] [address] Urology 01/10/16 Genoveva Goldman NP [address] [place] [address],[address]. [address] [place] [address] [email or web address] Oncology 12/03/17 Amina Moran RN [address] [place] [address]. [place] [address] [email or web address] Primary Infusion Nurse 12/25/23 Additional Source Comments The information contained in this document represents components of the legal health record. It is not the complete legal health record.[facility]
== END 2025-07-23 09:47 | disposition home or self-care (01) ==
LOC: HO.HUSH 08:56
PROVIDERS: PCP Internal Medicine; Visit Provider Urology
DX: N30.40 Irradiation cystitis without hematuria (principal); C61 Malignant neoplasm of prostate; C67.9 Malignant neoplasm of bladder, unspecified; Z13.9 Encounter for screening, unspecified
CPT/HCPCS: 52000; 99213